=== PATIENT | female | born 1950 | race Caucasian/White ===

== ENCOUNTER 2017-10-17 21:22 | Inpatient (IN) | payer MEDICARE ==
--- NOTE | 2017-10-17 23:14 | CT ---
CT OF BRAIN PERFORMED WITHOUT CONTRAST ENHANCEMENT: 10/17/17 COMPARISON: Earlier examination the same day. HISTORY: Subacute stroke. Altered mental status. Ventricular and cisternal system shows fairly age appropriate change. Subtle hypodensity is again not ed in the subcortical white matter left frontal lobe. No hemorrhage or mass effect. IMPRESSION: Subtle area of decreased attenuation in the subcortical white matter of the left frontal lobe stable as compared to the earlier exam of the same day. No hemorrhage. If stroke is suspected, MRI would be helpful in further assessment. POS: [facility]
--- NOTE | 2017-10-17 23:15 | RAD ---
PORTABLE CHEST: 10/17/17 HISTORY: Altered mental status. Heart size is enlarged. Elevated right hemidiaphragm is present. The lungs are clear of any infiltrat gema process. No signs of overt failure. IMPRESSION: 1. Marked cardiomegaly. 2. Elevated right hemidiaphragm. POS: [facility]
[2017-10-17] MEDS ORDERED: Vecuronium 10 MG VIAL ONE (23:21)
[2017-10-17] MEDS ORDERED: Water For Inject, Bacteriostat 30 ML ONE (23:23)
[2017-10-17 23:40] LABS: INR-International Normal Ratio 1.7; PTT 29.8 SEC (22.9-36.1)
[2017-10-17 23:47] LABS: #Lymphocytes 0.4 thou/uL (1.20-3.40); #Monocytes 0.6 thou/uL (0.11-0.59); #Neutrophils 12.5 thou/uL (1.40-6.50); %Eosinophils 0.2 % (0.0-10.0); %Lymphocytes 3.2 % (21.0-51.0); %Monocytes 4.3 % (0.0-10.0); %Neutrophils 92.2 % (42.0-75.0); Hemoglobin 14.6 g/dL (12.0-16.0); Mean Corpuscular HGB CONC 29.5 g/dL (32.0-36.0); Mean Corpuscular Hemoglobin 32.9 pg (27.0-31.0); Platelet Count 178 thou/uL (130-400); RBC Distribution Width 13.3 % (11.5-14.5); Red Blood Cell (RBC) Count 4.44 mill/uL (4.20-5.40); White Blood Cell (WBC) Count 13.5 thou/uL (4.8-10.8)
[2017-10-17 23:52] LABS: ALT (SGPT) 20 U/L (8-55); AST (SGOT) 28 U/L (5-34); Albumin 3.4 g/dL (3.4-4.8); Alkaline Phosphatase 85 U/L (40-150); Anion Gap 19 mmol/L (10-20); BUN (Urea Nitrogen) 53 mg/dL (9.8-20.1); CK (CPK) 65 U/L (29-168); Calc. Creatinine Clearance 0 mL/min (70-130); Calcium 7.7 mg/dL (7.8-10.44); Carbon Dioxide 32 mmol/L (23-31); Chloride 97 mmol/L (98-107); Estimated GFR-MDRD 14; Globulin 2.7 g/dL (2.4-3.5); Glucose 123 mg/dL (80-115); Lipase 23 U/L (8-78); Potassium 5.7 mmol/L (3.5-5.1); Protein, Total 6.1 g/dL (6.0-8.3); Sodium 142 mmol/L (136-145)
[2017-10-17 23:54] LABS: CKMB 2.2 ng/mL (0-6.6); Troponin I 0.089 ng/mL (< 0.028)
[2017-10-18 00:05] LABS: pH, Arterial 7.11 (7.35-7.45)
[2017-10-18 00:10] LABS: CO2 Tension 129.9 mmHg (35.0-45.0)
[2017-10-18 00:11] LABS: Actual Bicarbonate (HCO3a) 40.5 mEq/L (22-26); Base Excess (BEa) 5.7 mEq/L (0 (+/-) 2.5); Hematocrit-ABG 51.9 % (36.0-47.0)
[2017-10-18 00:12] LABS: ALV-art Gradient 394.625 (0-20); Analyzer IN Cardio ER; Puncture Site RRA
[2017-10-18 00:22] LABS: MDiff Complete? YES; Macrocytosis SLIGHT = 6-15 cells (100X) (0-5/hpf); PLT Morphology Comment Appears Adequate; Polychromasia SLIGHT = 2-3 cells (100X) (0-2/hpf)
[2017-10-18] MEDS ORDERED: Norepinephrine 8 MG in Sodium Chloride 0.9% 250 ML 250 ML IVPB PRN (00:22)
[2017-10-18] MEDS ORDERED: Aspirin 300 MG Suppository ONE (00:36)
[2017-10-18] MEDS ORDERED: Propofol 1,000 MG/100 ML VIAL IV ONE (00:55)
[2017-10-18 01:01] LABS: O2 Tension (PaO2) 245.8 mmHg (80.0-100.0)
[2017-10-18 01:03] LABS: Actual Bicarbonate (HCO3a) 32.2 mEq/L (22-26); Base Excess (BEa) 5.9 mEq/L (0 (+/-) 2.5); Hematocrit-ABG 47.4 % (36.0-47.0); Hemoglobin (Hb) 14.3 g/dL (12.0-16.0)
[2017-10-18 01:05] LABS: Analyzer IN Cardio ER; Puncture Site RRA
[2017-10-18] MEDS ORDERED: Lorazepam 2 MG/ML VIAL ONE (01:18)
[2017-10-18] MEDS ORDERED: fentaNYL Citrate/PF 2,000 MCG in Sodium Chloride 0.9% 60 ML IV SCH ×2 (02:51→04:36)
[2017-10-18] MEDS ORDERED: Morphine 2 MG/ML SYRINGE SLOW IVP PRN ×2 (02:51→04:36)
[2017-10-18] MEDS ORDERED: DISCONTINUE PREVIOUS NARCOTIC PAIN MEDICATIONS AND BENZODIAZEPINES FS SCH ×2 (02:51→04:36)
[2017-10-18] MEDS ORDERED: Lorazepam 2 MG/ML VIAL SLOW IVP PRN ×2 (02:51→04:36)
[2017-10-18] MEDS ORDERED: Ondansetron ODT 4 MG TAB SL PRN (02:55)
[2017-10-18] MEDS ORDERED: Sodium Chloride 0.9% 1,000 ML IV SCH ×3 (02:55→17:15)
[2017-10-18] MEDS ORDERED: Ondansetron HCl/PF 4 MG/2 ML Vial IVP PRN ×2 (02:55→04:23)
[2017-10-18] MEDS ORDERED: CCU Electrolyte Replacement 1 EACH FS ONE (04:23)
[2017-10-18] MEDS ORDERED: Dextrose 5% in Water 1,000 ML IV PRN (04:23)
[2017-10-18] MEDS ORDERED: Ondansetron ODT 4 MG TAB PO PRN (04:23)
[2017-10-18] MEDS ORDERED: HumaLOG 300 UNITS/3 ML VIAL SC PRN ×2 (04:23)
[2017-10-18] MEDS ORDERED: Acetaminophen 650 MG Suppository PR PRN (04:23)
[2017-10-18] MEDS ORDERED: Sedation Protocol FS ONE (04:23)
[2017-10-18] MEDS ORDERED: Dextrose 50% Abboject 50 ML SYRINGE SLOW IVP PRN (04:23)
[2017-10-18 04:27] LABS: Troponin I 0.227 ng/mL (< 0.028)
[2017-10-18] MEDS ORDERED: Propofol 1,000 MG/100 ML VIAL IV PRN (04:36)
[2017-10-18] MEDS ORDERED: Potassium Phosphate 15 MMOL in Sodium Chloride 0.9% 250 ML 250 ML IV PRN (04:37)
[2017-10-18] MEDS ORDERED: Potassium Phosphate 12 MMOL in Sodium Chloride 0.9% 250 ML 250 ML IV PRN (04:37)
[2017-10-18] MEDS ORDERED: Magnesium 2 GM/NS 0.9% 100 ML 2 GM in Premix Bag 1 BAG IVPB PRN (04:37)
[2017-10-18] MEDS ORDERED: CCU ELECTROLYTE REPLACEMENT PROTOCOL FS PRN (04:37)
[2017-10-18] MEDS ORDERED: Potassium Chloride 40 MEQ in Sodium Chloride 0.9% 250 ML 250 ML IVPB PRN (04:37)
[2017-10-18] MEDS ORDERED: Potassium Chloride 40 MEQ in Premix Bag 1 BAG IVPB PRN (04:37)
[2017-10-18] MEDS ORDERED: Magnesium Oxide 400 MG TAB PO PRN ×2 (04:37)
[2017-10-18] MEDS ORDERED: Potassium Phosphate 9 MMOL in Sodium Chloride 0.9% 100 ML IVPB PRN (04:37)
[2017-10-18] MEDS ORDERED: Potassium Chloride 20 MEQ TAB PO PRN (04:37)
[2017-10-18] MEDS: Sodium Chloride 0.9% 1,000 ML IV SCH ×2 (05:24→19:15)
--- NOTE | 2017-10-18 05:58 | HP ---
DATE OF ADMISSION: 10/18/2017 PRIMARY CARE PROVIDER: Luis richter. CHIEF COMPLAINT: Unresponsive. HISTORY OF PRESENT ILLNESS: This is a 67-year-old female who presented from [facility] to [facility] Emergency Department after apparently being found unresponsive by family abi baumann. The history is obtained after review of electronic medical records and discussion with the E R attending as the patient is currently on mechanical ventilation, unable to provide any history. Th e patient was apparently last seen normal at approximately 2000 on 10/17/2017 by her son. The ino khan's son found her at home with altered mentation and confusion approximately 10:00 a.m. on 10/18/2017 . EMS was notified and the patient was taken to [facility] undergoing CT imaging o f the brain with questionable subacute ischemic CVA, not a candidate for TPA. The patient on chronic Eliquis for atrial fibrillation. The patient was evaluated initially for potential TPA; however, wa s not deemed an appropriate candidate due to the chronic Eliquis therapy. Due to patient's minimally responsive condition, patient was deemed unsafe for airway protection undergoing intubation in the e mergency room. The patient apparently had discussed she was not interested in aggressive support or life support with mechanical ventilation; however, the patient's agreed to intubate the dago nt for respiratory support and a potential chance of recovery. The patient was hypotensive in the em ergency room and receiving intravenous fluids as well as initiated on Levophed drip. Initial ABG obt ained showed severe elevation to pCO2 in the 130 range. The patient was placed on mechanical ventila tion with resulting hypotension after initiation of propofol. The patient's overall blood pressure s tabilizes after initial intubation. The patient underwent chest imaging showing questionable infiltr ate. At which point, the patient received empiric IV antibiotic therapy with vancomycin. The ion khan also received aspirin 324 mg rectally as well as intravenous normal saline x2 liters. Repeat CT im aging of the brain in the emergency room showed no acute intracranial process. The patient underwent general stroke protocol with NIH scoring ranging between 14 to 15 over approximately 6 hours. The p atient was referred to the Hospitalist Service for evaluation and admission. PAST MEDICAL HISTORY: 1. Chronic anticoagulation with Eliquis. 2. Morbid obesity. 3. Anxiety/depression. 4. Gastroesophageal reflux. 5. Question of tachyarrhythmia with atrial fibrillation on chronic anticoagulation with Eliquis. 6. Diabetes mellitus type 2. 7. Hypertension. 8. Question of congestive heart failure. 9. Esophagitis. 10. Spinal stenosis. 11. History of peripheral vascular disease. 12. History of deep venous thrombosis. PAST SURGICAL HISTORY: Status post right shoulder replacement. Right breast cancer, status post mas tectomy. CURRENT MEDICATIONS: Reviewed and negative. ALLERGIES: IODINE. FAMILY HISTORY: Unobtainable as patient is on mechanical ventilation. SOCIAL HISTORY: The patient resides in the [facility]. Retired. . No current alc ohol, tobacco or illicit drug use. Formerly smoked cigarettes. REVIEW OF SYSTEMS: Unobtainable as patient is on current mechanical ventilation. PHYSICAL EXAMINATION: VITAL SIGNS: On admission, blood pressure 100/80, pulse 69, respiratory rate 24, temperature 97.9 de grees Fahrenheit, O2 saturation 98% on nonrebreather. GENERAL APPEARANCE: This is a 67-year-old female currently on mechanical ventilation, mini storm responsive to stimuli. HEENT: Pupils are minimally reactive to light and accommodation. Extraocular muscles intact. Nares patent. OP is clear. ET tube in place. NECK: Supple, no cervical adenopathy, no thyromegaly, no carotid bruits, no JVD appreciated. Cervic al spine with full active and passive range of motion. CHEST: Diminished breath sounds in the bases bilaterally. CARDIOVASCULAR: S1, S2, without noted murmur. ABDOMEN: Obese, landmarks were difficult to palpate due to patient's body habitus. No palpable mass . No rebound or guarding. EXTREMITIES: Warm and dry with fair turgor. No clubbing, cyanosis or asymmetric edema. Nonpitting edema noted bilaterally. Pulses are diminished bilaterally at the dorsalis pedis, posterior tibial, and popliteal arteries. Capillary refill less than 2 seconds. NEUROLOGIC: Obtunded, withdraws to painful stimulus of the feet. GENITOURINARY: Bentley catheter in place with gentry urine. PERTINENT LABORATORY DATA AND X-RAY FINDINGS: Sodium 142, potassium 5.7, chloride 97, CO2 of 32, BUN 83, creatinine 3.31 with estimated GFR of 14, glucose 123, calcium 7.7. LFTs within normal limits. Troponin I ranged between 0.089 to 0.227. BNP 1823. Albumin 3.4, lipase 23. CBC showed white bloo d cell count 13.5, hemoglobin 15, hematocrit 49, MCV 111, platelet count 178 with 92% neutrophils. P T 20.0, INR 1.7, PTT 29.8. CT of the chest dated 10/17/2017 showed old granulomatous changes. Mild infiltrative versus atelectasis of the right lung base. Portable chest x-ray dated 10/18/2017 showed right-sided pleural effusion. Chronic changes in bilateral lung dickinson. Diminished lung volumes. The CT of the brain dated 10/18/2017 showed no acute intracranial process or hemorrhage. EKG dated 0 10/17/2017 by my interpretation shows sinus mechanism with heart rates in the 60s. Attenuated R waves noted in the precordial leads. Low voltage tracing. T-wave inversion noted in lead III and V3. ASSESSMENT AND PLAN: 1. Acute hypoxemic respiratory failure. We will continue mechanical ventilation with SIMV. We will consult Pulmonology Service for ventilatory management. We will continue aggressive pulmonary suppo rtive measures including daily portable chest x-ray. Suspect multifactorial respiratory failure give n patient's body habitus and questionable infiltrate/pneumonia of the right lower lobe. 2. Questionable subacute transient ischemic attack/cerebrovascular accident. Serial CT imaging of t he brain revealing no acute infarct. Likely old changes noted on CT initially. 3. Hypotension. Improved with intravenous normal saline x2 liters in addition to general supportive measures. Continue empiric antibiotic therapy with cefepime and Levaquin. Continue to titrate anti biotic regimen based on clinical response. 4. Question of congestive heart failure. BNP elevated to 1823. Check 2D transthoracic echocardiogr am for ejection fraction and wall motion detection. Hold Lasix due to hypotension and likely dehydra tion. 5. Chronic anticoagulation with Eliquis. We will need to confirm the purpose of anticoagulation. T he patient may be deemed an inappropriate candidate for outpatient Eliquis. 6. Acute encephalopathy, likely metabolic. Suspect patient's presentation due to polypharmacy and i atrogenic effects of multiple psychiatric medications. We will continue general supportive measures. Consider [facility] evaluation. 7. Acute kidney injury. We will continue low volume intravenous normal saline at 75 mL per hour. A void nephrotoxic agents and contrast media. Repeat creatinine in the a.m. 8. Hyperkalemia. Secondarily to acute kidney injury. Continue intravenous fluids as outlined previ ously. Avoid potassium supplementation. Repeat potassium level in the a.m. 9. Question of urinary tract infection. We will continue cefepime as stated previously. Await jaya bartlett urine culture results. 10. Prophylaxis. Sequential compression devices while in bed. Protonix 40 mg IV q.12 hours. 11. Code status is FULL. Surrogate medical decision maker is patient's spouse.
[2017-10-18 07:05] LABS: Troponin I 0.332 ng/mL (< 0.028)
--- NOTE | 2017-10-18 07:46 | RAD ---
SUPINE FRONTAL CHEST RADIOGRAPH: Date: 10-18-17 Comparison: 10-17-17 History: Intubated CCU patient. FINDINGS: Right vascular catheter overlies the region of the SVC. Endotracheal tube and nasogastric tube are in proper position. Left lung appears clear. There is marked elevation of the right hemidiaphragm limit ing evaluation of the right perihilar region, right middle lobe, and right lower lobe, grossly unchan ged. IMPRESSION: Stable appearance of the chest. POS: [facility]
--- NOTE | 2017-10-18 07:54 | CT ---
PRELIMINARY REPORT/[facility]/EMERGENCY AFTER HOURS PROCEDURE: EXAM: CT Head Without Intravenous Contrast CLINICAL HISTORY: 67 years old, female; Signs and symptoms; Altered mental status/memory loss; Other: Ams/sizure; Patie nt HX: Ams/sizure like activity TECHNIQUE: Axial computed tomography images of the head/brain without intravenous contrast. COMPARISON: No relevant prior studies available. FINDINGS: Brain: Mild volume loss No hemorrhage. Mild white matter disease. No edema. Ventricles: Unremarkable. No ventriculomegaly. Bones/joints: Unremarkable. No acute fracture. Soft tissues: Unremarkable. Sinuses: Unremarkable as visualized. No acute sinusitis. Mastoid air cells: Unremarkable as visualized. No mastoid effusion. IMPRESSION: No intracranial hemorrhage.Please see discussion above. Thank you for allowing us to participate in the care of your patient. Dictated and Authenticated by: Ryan Vallecillo MD 10/18/2017 2:32 AM Central Time (US & Day) FINAL REPORT CT BRAIN WITHOUT CONTRAST: I agree with the preliminary report given by Dr. Ryan Vallecillo of [facility]. POS: [facility]
--- NOTE | 2017-10-18 08:17 | RAD ---
PORTABLE CHEST ONE VIEW: Date: 10-18-17 Time: 5:46 a.m. History: Respiratory failure. FINDINGS/IMPRESSION: No significant internal change is seen since exam at 12:43 a.m. on the same day. POS: [facility]
[2017-10-18] MEDS ORDERED: Famotidine/PF 20 mg/2ml Vial SLOW IVP SCH (09:00)
[2017-10-18] MEDS ORDERED: Aspirin 300 MG Suppository PR SCH (09:00)
[2017-10-18] MEDS ORDERED: Cefepime 2 GM in Sodium Chloride 0.9% 100 ML IVPB SCH (09:00)
[2017-10-18] MEDS: Propofol 1,000 MG/100 ML VIAL IV PRN ×3 (09:20→23:35)
[2017-10-18] MEDS: Cefepime 2 GM, Syringe 2.5 ML in Sterile Water 10 ML SLOW IVP SCH (09:22)
[2017-10-18 09:49] LABS: CO2 Tension 40.3 mmHg (35.0-45.0); pH, Arterial 7.51 (7.35-7.45)
[2017-10-18 09:50] LABS: Actual Bicarbonate (HCO3a) 31.1 mEq/L (22-26); Base Excess (BEa) 7.5 mEq/L (0 (+/-) 2.5); Hematocrit-ABG 41.6 % (36.0-47.0); Hemoglobin (Hb) 13.4 g/dL (12.0-16.0); O2 Tension (PaO2) 81.8 mmHg (80.0-100.0)
[2017-10-18 09:51] LABS: Calcium, Ionized 0.9 mmol/L (1.12-1.30)
[2017-10-18 09:52] LABS: Puncture Site L.R.
[2017-10-18 09:53] LABS: ALV-art Gradient 226.825 (0-20)
--- NOTE | 2017-10-18 11:18 | ULT ---
CAROTID ARTERIAL DOPPLER ULTRASOUND: Date: 10-18-17 Comparison: None. History: Question transient ischemic attack, respiratory failure, possible CHF, altered mental status with memory loss. Technique: Multiplanar grayscale sonographic imaging of the arterial structures of the neck obtained with color flow and spectral analysis. FINDINGS: Antegrade blood flow and normal arterial waveforms are documented within the carotid system. The left vertebral artery is patent and demonstrates antegrade blood flow. The finishing inspector was not able to visualize the right vertebral artery. She reports that this was secon kristie to a vascular catheter present within the patient's neck on the right. VESSEL PSV (cm/sec) EDV (cm/sec) Right CCA 50 10 Right ICA 38 15 Right ECA 51 12 Left CCA 65 10 Left ICA 30 8 Left ECA 141 10 ICA/CCA ratio is 0.8 on the right and 0.5 on the left. IMPRESSION: 1. No hemodynamically significant stenosis is seen within the carotid system on either side on the ba sis of sonographic criteria. 2. Right vertebral artery could not be visualized. Sap Bi Developer reports that this secondary to a vascu lar line obscuring assessment. Thus, vertebral artery patency cannot be confirmed. If clinically aries anted, CT angiogram of the neck is thus advised. POS: [facility]
--- NOTE | 2017-10-18 14:19 | CON ---
DATE OF CONSULTATION: 10/18/2017 CONSULTING PHYSICIAN: Dr. Surinder Guillen REQUESTING PHYSICIAN: Dr. Garcia REASON FOR CONSULTATION: Acute on chronic kidney disease as well as hyperkalemia in an unresponsive patient. IMPRESSION: 1. Acute on chronic kidney disease. This is likely/possibly hemodynamically mediated acute tubular injury in the way of hypotension. 2. Hyperkalemia related to problem #1. PLAN: 1. We will continue gentle hydration and monitor the kidney function closely, especially the electro lytes, in this case hyperkalemia. 2. There is no emergent indication for dialytic intervention at this point; however, if this renal f unction does not improve and the hyperkalemia persists, this modality of treatment might become indic ated. HISTORY OF PRESENT ILLNESS: History is that of a 67-year-old female patient who is currently intuba debbie, brought in unresponsive from [place] where the patient presented with mental status change and was intubated, felt not to be able to maintain the airway. Clinical evaluation suspicion of a manuel bacute CVA. The patient on further evaluation was noted with poor renal function with a creatinine o f 3.31, BUN of 53 and a potassium of 5.7. As a result of these findings, the decision has been taken to involve Renal in the management of this case. PAST MEDICAL HISTORY: Coagulopathy, on Eliquis, atrial fibrillation, morbid obesity, anxiety, depres joe, reflux disease, type 2 diabetes mellitus, hypertension, esophagitis, possible congestive heart failure, peripheral vascular disease and history of deep venous thrombosis. MEDICATIONS: Reviewed and as documented on [employer]. ALLERGIES: IODINE. FAMILY HISTORY: Could not be obtained as well as the social history because the patient is currently intubated. REVIEW OF SYSTEMS: Unobtainable. PHYSICAL EXAMINATION: GENERAL: The patient noted to be on life support, but hemodynamically stable. VITAL SIGNS: Blood pressure 104/48, pulse 79, respiratory rate of 16, O2 sat 95%. HEENT: Remarkable for endotracheal tube in place. CARDIOVASCULAR SYSTEM: First and second heart sounds were heard. RESPIRATORY SYSTEM: Reveals vented sounds. DIGESTIVE SYSTEM: Revealed an obese abdomen. EXTREMITIES: Showed bilateral leg edema. NEUROLOGIC: Revealed a patient who is sedated and intubated. SUMMARY: A 67-year-old female patient brought in unresponsive, having suffered what is believed to b e subacute cerebrovascular accident, now noted with electrolyte derangement in this case hyperkalemia in the context of advanced chronic kidney disease versus [id number] kidney disease. Thank you for this consultation. We will follow with you.
[2017-10-18] MEDS ORDERED: Albumin 25% 25 GM/100 ML BOT IVPB SCH (14:20)
[2017-10-18] MEDS ORDERED: Propofol 200 MG/20 ML VIAL ONE (15:00)
[2017-10-18 15:02] LABS: Anion Gap 15 mmol/L (10-20); BUN (Urea Nitrogen) 67 mg/dL (9.8-20.1); Calc. Creatinine Clearance 44 mL/min (70-130); Calcium 7.2 mg/dL (7.8-10.44); Carbon Dioxide 33 mmol/L (23-31); Chloride 100 mmol/L (98-107); Estimated GFR-MDRD 15; Glucose 79 mg/dL (80-115); Potassium 4.3 mmol/L (3.5-5.1); Sodium 144 mmol/L (136-145)
[2017-10-18 17:28] LABS: Platelet Count 123 thou/uL (130-400)
[2017-10-18 17:29] LABS: #Basophils 0.1 thou/uL (0.0-0.2); #Lymphocytes 0.9 thou/uL (1.20-3.40); #Monocytes 0.7 thou/uL (0.11-0.59); %Basophils 0.6 % (0.0-1.0); %Eosinophils 0.4 % (0.0-10.0); %Lymphocytes 9.5 % (21.0-51.0); %Monocytes 6.7 % (0.0-10.0); %Neutrophils 82.8 % (42.0-75.0); Hemoglobin 12.4 g/dL (12.0-16.0); Mean Corpuscular HGB CONC 31.4 g/dL (32.0-36.0); Mean Corpuscular Hemoglobin 33.1 pg (27.0-31.0); Platelet Count 123 thou/uL (130-400); RBC Distribution Width 13.4 % (11.5-14.5); Red Blood Cell (RBC) Count 3.74 mill/uL (4.20-5.40); White Blood Cell (WBC) Count 9.7 thou/uL (4.8-10.8)
[2017-10-18 17:34] LABS: Fibrinogen 367 mg/dL (253-463); INR-International Normal Ratio 1.9; PTT 31.7 SEC (22.9-36.1); Prothrombin Time 22.6 SEC (12.0-14.7)
[2017-10-18 17:35] LABS: D-Dimer Test 1.04 *mcg/mL (0.27-0.43)
[2017-10-18 17:39] LABS: Actual Bicarbonate (HCO3a) 31.1 mEq/L (22-26); CO2 Tension 53.1 mmHg (35.0-45.0); Hematocrit-ABG 37.6 % (36.0-47.0); O2 Tension (PaO2) 66.3 mmHg (80.0-100.0); pH, Arterial 7.39 (7.35-7.45)
[2017-10-18 17:40] LABS: ALV-art Gradient 226.325 (0-20); Calcium, Ionized 0.9 mmol/L (1.12-1.30)
[2017-10-18 17:48] LABS: FSP-Qualitative ABNORMAL (Normal); FSP-Semiquantitative >=5 & <20 mcg/mL (Less than 5)
[2017-10-18 17:50] LABS: ALT (SGPT) 19 U/L (8-55); AST (SGOT) 26 U/L (5-34); Alkaline Phosphatase 59 U/L (40-150); Anion Gap 17 mmol/L (10-20); BUN (Urea Nitrogen) 65 mg/dL (9.8-20.1); Calc. Creatinine Clearance 44 mL/min (70-130); Calcium 7.2 mg/dL (7.8-10.44); Carbon Dioxide 29 mmol/L (23-31); Chloride 100 mmol/L (98-107); Estimated GFR-MDRD 15; Globulin 2.1 g/dL (2.4-3.5); Glucose 85 mg/dL (80-115); Potassium 4.4 mmol/L (3.5-5.1); Protein, Total 5.1 g/dL (6.0-8.3); Sodium 142 mmol/L (136-145)
--- NOTE | 2017-10-18 20:04 | CON ---
DATE OF CONSULTATION: 10/18/2017 HISTORY OF PRESENT ILLNESS: The patient is a 67-year-old white female who was in her normal state of health until the day of admission, when she had altered mental status. She was diagnosed with a cer ebrovascular accident. The patient was on Xarelto for atrial fibrillation. She was intubated becaus e of inability to protect her airway. In the critical care unit, she had a large dark bloody stool. She has not had any prior history of GI bleeds or ulcer disease. History of diverticulosis, but nev er bleeding from that. PAST MEDICAL HISTORY: 1. Chronic atrial fibrillation, on Xarelto. 2. Obesity. 3. Diabetes mellitus. 4. Gastroesophageal reflux disease. 5. Hypertension. 6. History of esophagitis. 7. Spinal stenosis. 8. Peripheral vascular disease. PAST SURGICAL HISTORY: Shoulder replacement, right breast cancer, and mastectomy. CURRENT MEDICATIONS: Cefepime 2 grams IV q.24 hours, famotidine 20 mg IV every day, levofloxacin 75 0 mg IV q.48 hours, Ativan 2 mg IV q.2 hours p.r.n., magnesium oxide 400 mg p.o. b.i.d. p.r.n., Levo phed drip, propofol drip, vancomycin 2 grams IV. SOCIAL HISTORY: She does not smoke or drink. FAMILY HISTORY: Negative. REVIEW OF SYSTEMS: Unobtainable. PHYSICAL EXAMINATION: GENERAL: Shows an obese female in no acute distress, intubated. HEENT: Shows a nasogastric tube and orotracheal tube. CHEST: Clear. CARDIOVASCULAR: Regular rate and rhythm. ABDOMEN: Obese, soft, nontender. RECTAL: Deferred. EXTREMITIES: Normal. NEUROLOGIC: Nonfocal. LABORATORY DATA: Shows a hemoglobin of 12.4, hematocrit of 39.4. PT is 22.6 with an INR of 1.9. Ch emistries showed a creatinine of 3.09, BUN 67, glucose 79. ASSESSMENT: 1. Upper gastrointestinal bleed. 2. Cerebrovascular accident. 3. Atrial fibrillation, on Xarelto. 4. Renal insufficiency - this will contribute to slower degradation of the patient's Xarelto. RECOMMENDATIONS: 1. Hold anticoagulation. 2. EGD. 3. Begin IV PPI. 4. Serial H&H.
--- NOTE | 2017-10-18 20:56 | OP ---
PREOPERATIVE DIAGNOSIS: Gastrointestinal bleed. PROCEDURE IN DETAIL: After informed consent was obtained, the patient was placed in the left lateral decubitus position. Anesthesia was administered per the Anesthesia Department. Forward-viewing end oscope was inserted into the esophagus under direct visualization with ease and passed to the second portion of the duodenum with ease. Second portion of the duodenum was normal. Duodenal bulb was nor mal. No blood was seen in the upper GI tract. In the mid stomach was what appeared to be an old gas tric banding site with luminal narrowing. There was an erosion at the waist of this gastric band. P roximal to the waist was an adherent clot. This clot could not be removed despite an aeration and manuel ction and seemed to be stable and not actively bleeding, so it was left alone. In the more proximal pouch of the stomach near the cardia was another ostomy which seems to go into stomach as well. No b lood was seen in this area as well. The esophagus was normal throughout. ASSESSMENT: 1. Adherent clot in the proximal gastric pouch -- no treatment was applied. 2. Previous gastric surgical procedures probably bariatric in nature. 3. Otherwise normal esophagogastroduodenoscopy. RECOMMENDATIONS: 1. Continuous infusion PPI. 2. May begin tube feedings. 3. Relook EGD in 48 hours.
[2017-10-18] MEDS ORDERED: FLU VACC TS2017-18 (>65YR) 0.5 ML SYRINGE IM ONE (21:00)
[2017-10-18] MEDS ORDERED: Prevnar 13-Val Conj/PF 0.5 ML SYRINGE IM ONE (21:00)
[2017-10-18] MEDS: Pantoprazole 80 MG in Sodium Chloride 0.9% 100 ML IVP SCH (21:43)
--- NOTE | 2017-10-19 02:24 | CON ---
DATE OF CONSULTATION: 10/18/2017 REFERRING PHYSICIAN: Dusty Garcia D.O. REASON FOR CONSULTATION: Questionable transient ischemic attack versus cerebrovascular accident. HISTORY OF PRESENT ILLNESS: Ms. Miller is a 67-year-old morbidly obese female who has been consulte d for evaluation of question of transient ischemic attack versus cerebrovascular accident. History i s obtained from patient's medical chart as patient is unable to provide and there are no family membe r present at bedside. Apparently, the patient was brought to [facility] on yesterday after she was found unresponsive by family members. The patient was apparently last seen normal by h er son on 10/17/2017 around 8:00 p.m. The patient's son found her at home with altered mentation and confusion approximately 10:00 in the morning today. The patient had called 911 and EMS had brought them to go to the [facility] where she had a CT head without contrast done, which s howed questionable subacute ischemic stroke that she was not a candidate for TPA and then transferred over here for further care. She is also on chronic Eliquis for atrial fibrillation. She was found to be hypotensive on arrival to the emergency room and required pressor support. She was also noted to have significantly elevated pCO2 on ABG. Per nurse, the patient was slowly recovering with her me ntation today, she was able to move all 4 extremities to command and able to nod her head yes and no. However, she had a bloody bowel movement after which she dropped her blood pressure and since then she has been more lethargic and nonresponsive. PAST MEDICAL HISTORY: Significant for hypertension, diabetes, atrial fibrillation on Eliquis, GERD, anxiety, depression, morbid obesity, esophagitis, spinal stenosis, peripheral vascular disease and hi story of DVT. PAST SURGICAL HISTORY: Significant for right shoulder replacement surgery and history of mastectomy for right-sided breast cancer. CURRENT MEDICATIONS: Please review MAR. ALLERGIES: Include IODINE. FAMILY HISTORY: Unable to obtain. SOCIAL HISTORY: Unable to obtain. REVIEW OF SYSTEMS: Unable to obtain. PHYSICAL EXAMINATION: VITAL SIGNS: Blood pressure of 158/89, temperature of 99.4, respirations of 15, O2 sats of 94% on me chanical ventilation. GENERAL: Intubated, morbidly obese female in no apparent distress. RESPIRATORY: Clear to auscultation bilaterally. CARDIOVASCULAR: Regular rate and rhythm. NEUROLOGIC: Mental status: The patient is intubated and unresponsive to verbal or noxious stimuli. Cranial nerves: Pupils are 3 mm and reactive. Visual dickinson are unable to perform. Face appears s ymmetric. She does breathe over the ventilator machine. Motor exam showed flaccid bilateral upper a nd lower extremity. She does move her lower extremities very slightly to command. No movement noted in the upper extremities. She does not withdraw to pain in both upper and lower extremities. LABORATORY DATA: Reviewed, which included CBC, CMP, troponin, BNP, which is significant for potassiu m of 5.7, BUN of 65, creatinine of 3.09, troponin of 0.332, otherwise unremarkable. IMAGING STUDIES: CT head without contrast was reviewed, which showed subtle hypodensity in the left anterior frontal lobe suggestive of possible acute to subacute ischemic infarct. IMPRESSION: 1. Possible subacute left middle cerebral artery distribution ischemic infarct. 2. Altered mental status, likely toxic metabolic encephalopathy. 3. Upper gastrointestinal bleed. Ms. Miller is a pleasant 67-year-old female who presented with changes after being found u nresponsive at home. She is slowly recovering this morning and then had an episode of bloody bowel m ovement and since then she has regressed. I have reviewed her CT head without contrast, which showed possible hypoattenuation in the left anterior frontal lobe suggestive of acute to subacute ischemic infarct. At this time, I will recommend obtaining MRI brain without contrast when medically stable. Continue current medical management. Continue supportive care. Thank you for your consultation.
[2017-10-19 06:15] LABS: ALT (SGPT) 19 U/L (8-55); AST (SGOT) 22 U/L (5-34); Albumin 3.3 g/dL (3.4-4.8); Alkaline Phosphatase 66 U/L (40-150); Anion Gap 14 mmol/L (10-20); BUN (Urea Nitrogen) 61 mg/dL (9.8-20.1); Bilirubin, Total 1.2 mg/dL (0.2-1.2); Calc. Creatinine Clearance 59 mL/min (70-130); Calcium 7.7 mg/dL (7.8-10.44); Carbon Dioxide 33 mmol/L (23-31); Chloride 101 mmol/L (98-107); Estimated GFR-MDRD 21; Globulin 2.3 g/dL (2.4-3.5); Glucose 90 mg/dL (80-115); Potassium 3.6 mmol/L (3.5-5.1); Protein, Total 5.6 g/dL (6.0-8.3); Sodium 144 mmol/L (136-145)
--- NOTE | 2017-10-19 06:22 | CON ---
DATE OF CONSULTATION: 10/18/2017 HISTORY OF PRESENT ILLNESS: Enid Miller's history is obtained from her and the son. Ms. Miller is a 67-year-old female. tells me that she said she never wanted to be intubated no matter what, but apparently the was called when she presented for care and was asked if he wa nted everything to be done. Since he was not here, he asked that she be intubated and now he is toña diamond thoughts. I reassured him that it was the right thing to do until we delineate what her pr oblems are. Apparently, she was found down on the toilet and subsequently was transferred to the [facility] and admitted after intubation. Her son says she was on the toilet no longer than 30 minutes al one. Subacute thrombotic CVA was found on noncontrast CT imaging. She is chronically anticoagulated with Eliquis for atrial fibrillation and took her Eliquis yesterday, but has had nothing since the o nset of her illness apparently. Patient's blood pressure was initially labile. Subsequently, the laury mccann has been at the ICU and I was consulted because of the respiratory failure. This afternoon, jesse keller started having rectal bleeding. She already has central line in place. She was given 2 liters of saline, typed and crossed and coags were ordered. Gastroenterology was consulted and is planing to do endoscopy this evening. PAST MEDICAL HISTORY: Remarkable for, 1. Obesity. 2. Deconditioning and inactivity. 3. History of reflux disease. 4. History of atrial fibrillation. 5. Diabetes. 6. Hypertension. 7. History of spinal stenosis. 8. Reported history of esophagitis. 9. History of peripheral vascular disease. 10. History of DVT in the past. 11. History of shoulder replacement. 12. History of mastectomy for breast cancer. SOCIAL HISTORY: She lives in the [facility]. She is a nonsmoker, nondrinker. She has been using drugs and used to smoke. FAMILY HISTORY: Negative for lung disease at an early age according to the . ALLERGIES: THERE IS REPORTED IODINE ALLERGY. REVIEW OF SYSTEMS: According to her and is otherwise negative. Before going down on the venancio let, she was doing reasonably well at her baseline, although she had complained of some abdominal scrap breaker mping yesterday per his history. PHYSICAL EXAMINATION: VITAL SIGNS: Evening blood pressure 150/89, earlier today blood pressure dropped into the 70s, heart rate is now in the 80s, respiratory rate is 15, oximetry is 95. HEENT: Pupils are equal. Sclerae is anicteric. NECK: Supple. Awakening and weakly following commands during the afternoon today. She was examined multiple times. LUNGS: Clear. HEART: Regular rhythm. ABDOMEN: Soft. EXTREMITIES: No guarding or rigidity. She is quite obese. There is no lower extremity asymmetry. Does have chronic stasis changes and very large lower extremities all the way down to her ankles. LABORATORY DATA: White count is 9.7, hemoglobin 12.4 at 5:00 o'clock, platelets 123. Sodium 142, po tassium 4.4, chloride 100, bicarbonate 29, BUN 65, creatinine 3.09, troponin 0.3, albumin is 3. IMAGING DATA: Chest radiograph was reviewed. She has elevated right hemidiaphragm and no films here . IMPRESSION: 1. Respiratory failure associated with cerebrovascular accident. 2. Gastrointestinal blood loss. Unclear whether her blood pressure was low on the toilet, but it wa s apparently well in the emergency department. She started bleeding, but had no clinical signs of bleeding prior to this afternoon. Dr. Orosco was co nsulted to perform endoscopy. He did perform upper endoscopy according to the notes. She had a clot in her proximal gastric pouch. It appears she has had previous bariatric surgery per Dr. Orosco's not es. It was revealed by the when I was talking about past medical history. PPIs were recommended. She will remain mechanically ventilated. and son did want her to be a do not resuscitate patient. At this point, we will be able to consider extubation depends on the n eurological progress. Neurology needs to be consulted, it does not appear that this has been done. Magnetic resonance imaging might be appropriate because all radiographs have been reviewed by me. Her last blood gas was pH 7.39, CO2 of 53, pO2 of 66, probably caused her baseline pCO2. Her mean bl ood gas showed pH of 7.11, CO2 of 129. She is not currently being treated for sleep apnea per my dis cussion with the . I will be happy to follow along with the other physicians caring for. Critical care time was 30 minutes.
[2017-10-19 06:25] LABS: Band 2 % (5-11); Lymphocytes 16 % (21-51); MDiff Complete? YES; Mean Corpuscular HGB CONC 32.4 g/dL (32.0-36.0); Mean Corpuscular Hemoglobin 33.5 pg (27.0-31.0); Monocytes 5 % (0-10); Neutrophil 77 % (42-75); Platelet Count 140 thou/uL (130-400); RBC Distribution Width 13.5 % (11.5-14.5); Red Blood Cell (RBC) Count 3.87 mill/uL (4.20-5.40); White Blood Cell (WBC) Count 10.6 thou/uL (4.8-10.8)
[2017-10-19] MEDS: Pantoprazole 80 MG in Sodium Chloride 0.9% 100 ML IVP SCH (06:35)
[2017-10-19 07:09] LABS: CO2 Tension 49.1 mmHg (35.0-45.0); O2 Tension (PaO2) 124.3 mmHg (80.0-100.0); pH, Arterial 7.41 (7.35-7.45)
[2017-10-19 07:10] LABS: ALV-art Gradient 168.325 (0-20); Actual Bicarbonate (HCO3a) 30.6 mEq/L (22-26); Hemoglobin (Hb) 12.9 g/dL (12.0-16.0); Puncture Site RR
[2017-10-19] MEDS: Sodium Chloride 0.9% 1,000 ML IV SCH ×2 (07:54→20:51)
[2017-10-19 08:19] LABS: INR-International Normal Ratio 1.7; PTT 31.6 SEC (22.9-36.1); Prothrombin Time 20.1 SEC (12.0-14.7)
[2017-10-19] MEDS: Cefepime 2 GM, Syringe 2.5 ML in Sterile Water 10 ML SLOW IVP SCH (08:29)
[2017-10-19] MEDS: Propofol 1,000 MG/100 ML VIAL IV PRN (08:29)
--- NOTE | 2017-10-19 11:07 | PDOC.PN ---
- Subjective Encounter Start Date: 10/19/17 Encounter Start Time: 09:25 -: old records requested/rev pt is extubated this morning, she is more alert, no fever, no further bleeding - Objective Resuscitation Status: Resuscitation Status DNR:Do Not Resuscitate MAR Reviewed: Yes Vital Signs & Weight: Vital Signs (12 hours) Temp Pulse Resp BP Pulse Ox 10/19/17 10:20 88 20 94 L 10/19/17 09:45 93 L 10/19/17 09:30 93 L 10/19/17 08:00 14 10/19/17 07:27 98.7 F 74 18 93 L 10/19/17 07:24 76 115/55 L 10/19/17 07:00 98.7 F 10/19/17 05:55 14 10/19/17 04:00 98.6 F 16 10/19/17 02:00 14 10/19/17 00:00 98.6 F 14 Weight Admit Weight 361 lb Weight 365 lb 11.95 oz Most Recent Monitor Data Heart Rate from ECG 84 NIBP 126/69 NIBP BP-Mean 83 Respiration from ECG 23 SpO2 99 I&O: 10/18/17 10/19/17 10/20/17 06:59 06:59 06:59 Intake Total 164.8 3171.4 32 Output Total 300 1765 570 Balance -135.2 1406.4 -538 Result Diagrams: 10/19/17 05:30 10/19/17 05:30 Additional Labs: Accuchecks 10/19/17 10/19/17 10/18/17 10:46 05:35 21:57 POC Glucose 85 82 78 10/18/17 10/18/17 10/18/17 17:17 12:31 11:15 POC Glucose 86 74 66 L Radiology Reviewed by me: Yes (chest xray) EKG Reviewed by me: Yes (nsr) Phys Exam - Physical Examination Constitutional: NAD HEENT: PERRLA, moist MMs, sclera anicteric Neck: no JVD, supple Respiratory: no wheezing, no rales, no rhonchi Cardiovascular: RRR, no significant murmur, no rub Gastrointestinal: soft, non-tender, no distention, positive bowel sounds morbid obesity limiting exam Musculoskeletal: no edema, pulses present dificult to perform neuro exam Lymphatic: no nodes Psychiatric: normal affect Skin: no rash, normal turgor Dx/Plan (1) Acute metabolic encephalopathy Code(s): G93.41 - METABOLIC ENCEPHALOPATHY Status: Resolved (2) Acute on chronic diastolic (congestive) heart failure Code(s): I50.33 - ACUTE ON CHRONIC DIASTOLIC (CONGESTIVE) HEART FAILURE Status : Acute (3) Acute on chronic kidney failure Code(s): N17.9 - ACUTE KIDNEY FAILURE, UNSPECIFIED; N18.9 - CHRONIC KIDNEY DISEASE, UNSPECIFIED Status: Acute Comment: improving (4) Acute respiratory failure with hypoxia Code(s): J96.01 - ACUTE RESPIRATORY FAILURE WITH HYPOXIA Status: Acute Comment: extubated (5) Demand ischemia of myocardium Code(s): I24.8 - OTHER FORMS OF ACUTE ISCHEMIC HEART DISEASE Status: Acute (6) Anxiety and depression Code(s): F41.8 - OTHER SPECIFIED ANXIETY DISORDERS Status: Chronic (7) Chronic anticoagulation Code(s): Z79.01 - INTERMEDIATE (CURRENT) USE OF ANTICOAGULANTS Status: Chronic Comment: currently off due to GI bleed (8) Diabetes type 2, controlled Code(s): E11.9 - TYPE 2 DIABETES MELLITUS WITHOUT COMPLICATIONS Status: Chronic (9) GERD (gastroesophageal reflux disease) Code(s): K21.9 - GASTRO-ESOPHAGEAL REFLUX DISEASE WITHOUT ESOPHAGITIS Status: Chronic (10) Morbid obesity with BMI of 50.0-59.9, adult Code(s): E66.01 - MORBID (SEVERE) OBESITY DUE TO EXCESS CALORIES; Z68.43 - BODY MASS INDEX (BMI) 50-59.9 , ADULT Status: Chronic (11) Paroxysmal atrial fibrillation Code(s): I48.0 - PAROXYSMAL ATRIAL FIBRILLATION Status: Chronic (12) Severe tricuspid regurgitation Code(s): I07.1 - RHEUMATIC TRICUSPID INSUFFICIENCY Status: Chronic (13) CVA (cerebral vascular accident) Code(s): I63.9 - CEREBRAL INFARCTION, UNSPECIFIED Status: Suspected (14) GI bleed Code(s): K92.2 - GASTROINTESTINAL HEMORRHAGE, UNSPECIFIED Status: Resolved (15) Hyperkalemia Code(s): E87.5 - HYPERKALEMIA Status: Resolved (16) Hypotension Status: Resolved - Plan cont current plan of care, PT/OT * neuro recommended MRI * extubated today * overall stable hemodynemically * medication reviewed as below * symptomatic treatment * will monitor in CCU today * start PT/OT as tolerated. Review of Systems - Review of Systems Other: not reliable today after extubation, due to current cognitive status - Medications/Allergies Allergies/Adverse Reactions: Allergies Allergy/AdvReac Type Severity Reaction Status Date / Time iodine Allergy Verified 10/17/17 23:12 Medications: Current Medications Acetaminophen (Tylenol) 650 mg MT Q4H PRN PRN Reason: Headache/Fever or Mild Pain Acetaminophen (Tylenol) 1,000 mg PO Q6H PRN PRN Reason: Headache/Fever or Mild Pain Albuterol/Ipratropium (Duoneb) 3 ml NEB [id number] MICHEAL Last Admin: 10/19/17 10:20 Dose: 3 ml Dextrose/Water (Dextrose 50%) 25 gm SLOW IVP PRN PRN PRN Reason: Hypoglycemia Glucagon (Glucagon) 1 mg IM PRN PRN PRN Reason: Hypoglycemia Norepinephrine Bitartrate 8 mg (/ Sodium Chloride) 258 mls @ 0 mls/hr IVPB INF PRN; Protocol; Titrate PRN Reason: SBP Last Admin: 10/19/17 02:07 Dose: 258 mls Dextrose/Water (D5w) 1,000 mls @ 0 mls/hr IV .Q0M PRN; As Directed PRN Reason: Hypoglycemia Levofloxacin 500 mg/ Device 100 mls @ 100 mls/hr IVPB Q48H MICHEAL Sodium Chloride (Normal Saline 0.9%) 1,000 mls @ 75 mls/hr IV .[id number] MICHEAL Last Admin: 10/19/17 07:54 Dose: 1,000 mls Fentanyl Citrate 2,000 mcg/ (Sodium Chloride) 100 mls @ 0 mls/hr IV INF MICHEAL; Per Protocol PRN Reason: Protocol Stop: 11/17/17 04:36 Fentanyl Citrate (Fentanyl Bolus) 250 mls @ 0 mls/hr IVPB PRN PRN; As Directed PRN Reason: Breakthrough pain Stop: 11/17/17 04:36 Potassium Chloride 40 meq/ (Sodium Chloride) 270 mls @ 135 mls/hr IVPB ASDIR PRN PRN Reason: FOR SERUM K+ 2.5 - 3.5 Potassium Chloride 40 meq/ (Device) 100 mls @ 50 mls/hr IVPB ASDIR PRN PRN Reason: FOR SERUM K+ 2.5 - 3.5 Magnesium Sulfate 1 gm/ Sodium (Chloride) 102 mls @ 102 mls/hr IV PRN PRN PRN Reason: MAG LEVEL 1.4 - 2.0 Magnesium Sulfate 2 gm/ Device 100 mls @ 100 mls/hr IVPB ASDIR PRN PRN Reason: MAGNESIUM < 1.4 Potassium Phosphate 9 mmol/ (Sodium Chloride) 103 mls @ 25.75 mls/hr IVPB ASDIR PRN PRN Reason: Phosphate 1.0-1.8 Potassium Phosphate 12 mmol/ (Sodium Chloride) 254 mls @ 63.5 mls/hr IV ASDIR PRN PRN Reason: Serum phosphate 0.5-0.9 Potassium Phosphate 15 mmol/ (Sodium Chloride) 255 mls @ 63.75 mls/hr IV ASDIR PRN PRN Reason: Serum Phos < 0.5 Cefepime HCl 2 gm/ Syringe 2.5 (ml/ Sterile Water) 12.5 mls @ 150 mls/hr SLOW IVP 0900 [facility] Last Admin: 10/19/17 08:29 Dose: 12.5 mls Pantoprazole Sodium 80 mg/ (Sodium Chloride) 100 mls @ 10 mls/hr IVP INF [facility] Last Admin: 10/19/17 06:35 Dose: 100 mls Insulin Human Lispro (Humalog) 0 units SC .MODERATE SLIDING SC PRN PRN Reason: Moderate Correctional Scale Insulin Human Lispro (Humalog) 0 units SC .BEDTIME SLIDING SC PRN PRN Reason: Bedtime Correctional Scale Lorazepam (Ativan) 2 mg SLOW IVP Q2H PRN PRN Reason: Anxiety to achieve Aguilar 2-3 Stop: 11/17/17 04:36 Last Admin: 10/18/17 15:43 Dose: 2 mg Magnesium Oxide (Magnesium Oxide) 400 mg PO BIDPRN PRN PRN Reason: FOR SERUM MAG 1.4 - 2.0 Magnesium Oxide (Magnesium Oxide) 800 mg PO PRN PRN PRN Reason: FOR SERUM MAG < 1.4 Miscellaneous Medication (Phos-Nak) 1 pkt PO TIDPRN PRN PRN Reason: FOR PHOS LEVEL 1.0 - 1.8 Miscellaneous Medication (Phos-Nak) 2 pkt PO TIDPRN PRN PRN Reason: FOR PHOS LEVEL 0.5 - 1.0 Morphine Sulfate (Morphine) 2 mg SLOW IVP Q2H PRN PRN Reason: Breakthrough pain Stop: 11/17/17 04:36 Discontinue Previous Narcotic Pain Medications And Benzodiazepines 1 each FS .ONE MICHEAL Stop: 11/17/17 04:36 Ccu Electrolyte (Replacement Protocol) 0 each FS PRN PRN PRN Reason: FOR ELECTROLYTE REPLACEMENT Ondansetron HCl (Zofran Odt) 4 mg PO Q6H PRN PRN Reason: Nausea/Vomiting Ondansetron HCl (Zofran) 4 mg IVP Q6H PRN PRN Reason: Nausea/Vomiting Potassium Chloride (K-Dur) 40 meq PO ASDIR PRN PRN Reason: FOR SERUM K+ 2.5 - 3.5 Potassium Chloride (Klor-Con) 40 meq PER TUBE ASDIR PRN PRN Reason: FOR SERUM K+ 2.5-3.5 Propofol (Diprivan) 1,000 mg IV INF PRN; Protocol PRN Reason: TO ACHIEVE AGUILAR SCORE 2-3 Stop: 11/17/17 02:51 Last Admin: 10/19/17 08:29 Dose: 1,000 mg Propofol (Diprivan) 1,000 mg IV INF PRN; Protocol PRN Reason: TO ACHIEVE AGUILAR SCORE 2-3 Stop: 11/17/17 04:36
[2017-10-19] MEDS ORDERED: Levofloxacin 750 mg/D5W 500 MG in Premix Bag 1 BAG IVPB SCH (15:00)
--- NOTE | 2017-10-19 17:26 | PRG ---
DATE OF SERVICE: 10/19/2017 SUBJECTIVE: The patient has had no further bleeding. She has got extubated this morning. She is wi thout GI complaints. OBJECTIVE: VITAL SIGNS: Pulse is 88, respiratory rate 20, blood pressure 114/62, temperature 98.7. CHEST: Clear. CARDIOVASCULAR: Regular rate and rhythm. ABDOMEN: Soft, nontender, without organomegaly or masses. LABORATORY DATA: Shows hemoglobin 13.0, hematocrit of 40.4. PT this morning is 20.1 with an INR of 1.7. ASSESSMENT: 1. Gastrointestinal bleed - the patient had an adherent clot in the proximal gastric pouch, seems to have not re-bled. 2. Respiratory failure - resolved. 3. Cerebrovascular accident. 4. Atrial fibrillation on Xarelto. RECOMMENDATIONS: 1. Continue to hold Xarelto. 2. Relook EGD in 48 hours. 3. Continue IV PPI.
--- NOTE | 2017-10-19 19:36 | PRG ---
DATE OF SERVICE: 10/19/2017 SUBJECTIVE: Angela did well overnight. She was awake. She was smiling. She was moving all her extremities this morning. OBJECTIVE: VITAL SIGNS: This afternoon, blood pressure 120/67, heart rate is in the 70s, respiratory rate in the teens. LUNGS: Clear this morning. HEART: Regular rhythm. ABDOMEN: Soft. GI workup yesterday was negative. She did have clot in her stomach, but this will have to be reevaluated later time. LABORATORY DATA: White count is 10, hemoglobin 13, platelets 140,000. Sodium 140, potassium 3.6, chloride 101, bicarb 33, BUN 61, creatinine 2.3. Coags were abnormal yesterday, that is still abnormal. I suspect this is a downstream effect of the Eliquis and renal insufficiency, unless she has some degree of fatty liver dysfunction. ASSESSMENT AND PLAN: In any event, she is much better. I felt she was a candidate for extubation. This has been done successfully. I would not doubt that she has significant sleep apnea, so I recommended that we sleep her on BiPAP. At some point in time, she will have another endoscopy. Renal function will continue to be monitored. Cultures have been reviewed. There are no positive cultures. There is no reason to continue on this extremely broad spectrum antimicrobials, so her cefepime will be discontinued and the Levaquin will be discontinued. Clearly full dose anticoagulation will have to be held. Critical care time 30 minutes. MTDD
--- NOTE | 2017-10-19 20:08 | PRG ---
DATE OF SERVICE: 10/19/2017 SUBJECTIVE: The patient was seen and examined, noted with the following vital signs. OBJECTIVE: VITAL SIGNS: Blood pressure 120/67, pulse of 79, respiratory rate of 18 and O2 sat 97%. HEENT: Unremarkable. CARDIOVASCULAR SYSTEM: First and second heart sounds were heard. RESPIRATORY SYSTEM: Clear to auscultation. No rales. DIGESTIVE SYSTEM: Revealed a benign abdomen with positive bowel sounds. EXTREMITIES: No peripheral edema. IMPRESSION: 1. Acute on chronic kidney disease, which seems to be improving. 2. Gastrointestinal bleed followed by the unit reactor operator. PLAN: 1. We will continue with current renal supportive measures. 2. No indication for any dialytic intervention since admission. 3. Further management to be dependent on the clinical course.
[2017-10-19] MEDS ORDERED: Norepinephrine 8 MG in Sodium Chloride 0.9% 250 ML 250 ML IVPB PRN (20:22)
[2017-10-19] MEDS: Amoxicillin/Potassium Clav 875 MG TAB PO SCH (20:51)
[2017-10-20] MEDS: Pantoprazole 80 MG in Sodium Chloride 0.9% 100 ML IVP SCH ×3 (03:36→23:13)
[2017-10-20] MEDS ORDERED: Diprivan 20 ML ONE (08:05)
[2017-10-20] MEDS ORDERED: Lidocaine 2% Jelly 5 ML TUBE ONE (08:13)
[2017-10-20] MEDS ORDERED: Oxymetazoline HCl 0.05% ( 15 ML ) ONE (08:42)
[2017-10-20] MEDS: Sodium Chloride 0.9% 1,000 ML IV SCH ×2 (09:26→23:14)
[2017-10-20] MEDS: Amoxicillin/Potassium Clav 875 MG TAB PO SCH ×2 (10:11→21:04)
--- NOTE | 2017-10-20 10:59 | OP ---
DATE OF PROCEDURE: 10/20/2017 SURGEON: Dusty Ramirez M.D. PROCEDURE: Esophagogastroduodenoscopy with control of hemorrhage. PREOPERATIVE DIAGNOSIS: Upper gastrointestinal bleed. She had an EGD 2 days ago that showed fresh clot in the proximal stomach chamber; however interventio n could not be applied at that point. PROCEDURE IN DETAIL: Informed consent was obtained. The patient was sedated with total intravenous anesthesia. The bite block was placed and the endoscope was advanced easily to the second portion of the duodenum and retroflexion was performed in the stomach. The esophagus was normal. The GE junct ion was normal. She has evidence of a prior vertical band gastroplasty for weight loss surgery. The re was a 1 cm ulcer in the proximal stomach chamber. This had an adherent fixed clot in the base. T his could not be removed by suction or washing it with water or rubbing over it with an injection pro be. The site was injected with epinephrine and 3 sites with 1 mL of epinephrine 1:10,000. In light of her persistently elevated coags and use of Xarelto and renal failure the ulcer base was treated wi th 2 Hemoclips. There was some mild oozing from the base prior to treatment, oozing of blood. The H emoclip confirmed good hemostasis. The distal stomach was normal including retroflexed views. The p ylorus and first and second portions of the duodenum were normal. IMPRESSION: Ulcer in the proximal stomach with a fixed adherent clot and some active oozing from the base. This appears high risk for recurrent bleeding. The site was treated with epinephrine and gus cement of 2 Hemoclips with good hemostasis confirmed. RECOMMENDATIONS: 1. Continue proton pump inhibitor drip. 2. Check H. pylori antibody.
--- NOTE | 2017-10-20 11:36 | PDOC.PN ---
- Subjective Encounter Start Date: 10/20/17 Encounter Start Time: 10:40 she was hypotensive last night, required levophed drip, this morning she had endoscopy and found with ulcer she had bleeding with nasal trocar - Objective Resuscitation Status: Resuscitation Status DNR:Do Not Resuscitate MAR Reviewed: Yes Vital Signs & Weight: Vital Signs (12 hours) Temp Pulse Resp Pulse Ox 10/20/17 08:00 97.9 F 75 16 95 10/20/17 07:56 94 L 10/20/17 07:54 75 16 94 L 10/20/17 07:00 98.3 F 10/20/17 04:00 98.9 F 10/20/17 02:36 71 10/20/17 02:35 71 19 97 10/20/17 00:00 98.8 F 100 Weight Admit Weight 361 lb Weight 367 lb 11.697 oz Most Recent Monitor Data Heart Rate from ECG 84 NIBP 146/70 NIBP BP-Mean 87 Respiration from ECG 18 SpO2 100 I&O: 10/19/17 10/20/17 10/21/17 06:59 06:59 06:59 Intake Total 3171.4 3169.2 50 Output Total 1765 2545 355 Balance 1406.4 624.2 -305 Result Diagrams: 10/19/17 05:30 10/19/17 05:30 Additional Labs: Accuchecks 10/20/17 10/20/17 10/20/17 09:53 07:09 06:22 POC Glucose 89 86 72 10/20/17 10/19/17 10/19/17 06:15 20:50 15:54 POC Glucose 62 L 86 82 EKG Reviewed by me: Yes (nsr) Phys Exam - Physical Examination Constitutional: NAD HEENT: PERRLA, moist MMs, sclera anicteric Neck: no JVD, supple Respiratory: no wheezing, no rales, no rhonchi Cardiovascular: RRR, no significant murmur, no rub Gastrointestinal: soft, non-tender, no distention, positive bowel sounds morbid obesity Musculoskeletal: no edema, pulses present Neurological: non-focal Lymphatic: no nodes Psychiatric: normal affect Skin: no rash, normal turgor Dx/Plan (1) Acute metabolic encephalopathy Code(s): G93.41 - METABOLIC ENCEPHALOPATHY Status: Resolved (2) Acute on chronic diastolic (congestive) heart failure Code(s): I50.33 - ACUTE ON CHRONIC DIASTOLIC (CONGESTIVE) HEART FAILURE Status : Acute (3) Acute on chronic kidney failure Code(s): N17.9 - ACUTE KIDNEY FAILURE, UNSPECIFIED; N18.9 - CHRONIC KIDNEY DISEASE, UNSPECIFIED Status: Acute Comment: improving (4) Acute respiratory failure with hypoxia Code(s): J96.01 - ACUTE RESPIRATORY FAILURE WITH HYPOXIA Status: Acute Comment: extubated (5) Demand ischemia of myocardium Code(s): I24.8 - OTHER FORMS OF ACUTE ISCHEMIC HEART DISEASE Status: Acute (6) Anxiety and depression Code(s): F41.8 - OTHER SPECIFIED ANXIETY DISORDERS Status: Chronic (7) Chronic anticoagulation Code(s): Z79.01 - ONLINE MERCHANT (CURRENT) USE OF ANTICOAGULANTS Status: Chronic Comment: currently off due to GI bleed (8) Diabetes type 2, controlled Code(s): E11.9 - TYPE 2 DIABETES MELLITUS WITHOUT COMPLICATIONS Status: Chronic (9) GERD (gastroesophageal reflux disease) Code(s): K21.9 - GASTRO-ESOPHAGEAL REFLUX DISEASE WITHOUT ESOPHAGITIS Status: Chronic (10) Morbid obesity with BMI of 50.0-59.9, adult Code(s): E66.01 - MORBID (SEVERE) OBESITY DUE TO EXCESS CALORIES; Z68.43 - BODY MASS INDEX (BMI) 50-59.9 , ADULT Status: Chronic (11) Paroxysmal atrial fibrillation Code(s): I48.0 - PAROXYSMAL ATRIAL FIBRILLATION Status: Chronic (12) Severe tricuspid regurgitation Code(s): I07.1 - RHEUMATIC TRICUSPID INSUFFICIENCY Status: Chronic (13) CVA (cerebral vascular accident) Code(s): I63.9 - CEREBRAL INFARCTION, UNSPECIFIED Status: Suspected (14) GI bleed Code(s): K92.2 - GASTROINTESTINAL HEMORRHAGE, UNSPECIFIED Status: Resolved (15) Hyperkalemia Code(s): E87.5 - HYPERKALEMIA Status: Resolved (16) Hypotension Status: Resolved (17) Gastric ulcer Code(s): K25.9 - GASTRIC ULCER, UNSP ACUTE OR CHRONIC, W/O HEMOR OR PERF Status: Acute Qualifiers: Gastric ulcer chronicity: acute Gastric ulcer complication status: with hemorrhage Qualified Code(s): K25.0 - Acute gastric ulcer with hemorrhage - Plan cont current plan of care, continue antibiotics * continue protonix drip as per GI * wean off levophed today * monitor in ccu today * medication reviewed as below * symptomatic treatment. Review of Systems - Review of Systems Other: not reliable due to her level of cognitive status - Medications/Allergies Allergies/Adverse Reactions: Allergies Allergy/AdvReac Type Severity Reaction Status Date / Time iodine Allergy Verified 10/17/17 23:12 Medications: Current Medications Acetaminophen (Tylenol) 650 mg [place] Q4H PRN PRN Reason: Headache/Fever or Mild Pain Acetaminophen (Tylenol) 1,000 mg PO Q6H PRN PRN Reason: Headache/Fever or Mild Pain Albuterol/Ipratropium (Duoneb) 3 ml NEB [id number] Last Admin: 10/20/17 07:54 Dose: 3 ml Amoxicillin/Clavulanate Potassium (Augmentin) 875 mg PO Q12HR [facility] Last Admin: 10/20/17 10:11 Dose: 875 mg Dextrose/Water (Dextrose 50%) 25 gm SLOW IVP PRN PRN PRN Reason: Hypoglycemia Last Admin: 10/20/17 06:23 Dose: 12.5 gm Glucagon (Glucagon) 1 mg IM PRN PRN PRN Reason: Hypoglycemia Dextrose/Water (D5w) 1,000 mls @ 0 mls/hr IV .Q0M PRN; As Directed PRN Reason: Hypoglycemia Sodium Chloride (Normal Saline 0.9%) 1,000 mls @ 75 mls/hr IV .[id number] [facility] Last Admin: 10/20/17 09:26 Dose: 1,000 mls Potassium Chloride 40 meq/ (Sodium Chloride) 270 mls @ 135 mls/hr IVPB ASDIR PRN PRN Reason: FOR SERUM K+ 2.5 - 3.5 Potassium Chloride 40 meq/ (Device) 100 mls @ 50 mls/hr IVPB ASDIR PRN PRN Reason: FOR SERUM K+ 2.5 - 3.5 Magnesium Sulfate 1 gm/ Sodium (Chloride) 102 mls @ 102 mls/hr IV PRN PRN PRN Reason: MAG LEVEL 1.4 - 2.0 Magnesium Sulfate 2 gm/ Device 100 mls @ 100 mls/hr IVPB ASDIR PRN PRN Reason: MAGNESIUM < 1.4 Potassium Phosphate 9 mmol/ (Sodium Chloride) 103 mls @ 25.75 mls/hr IVPB ASDIR PRN PRN Reason: Phosphate 1.0-1.8 Potassium Phosphate 12 mmol/ (Sodium Chloride) 254 mls @ 63.5 mls/hr IV ASDIR PRN PRN Reason: Serum phosphate 0.5-0.9 Potassium Phosphate 15 mmol/ (Sodium Chloride) 255 mls @ 63.75 mls/hr IV ASDIR PRN PRN Reason: Serum Phos < 0.5 Pantoprazole Sodium 80 mg/ (Sodium Chloride) 100 mls @ 10 mls/hr IVP INF [facility] Last Admin: 10/20/17 03:36 Dose: 100 mls Norepinephrine Bitartrate 8 mg (/ Sodium Chloride) 258 mls @ 0 mls/hr IVPB INF PRN; Protocol; Titrate PRN Reason: SBP Last Admin: 10/19/17 20:51 Dose: 258 mls Insulin Human Lispro (Humalog) 0 units SC .MODERATE SLIDING SC PRN PRN Reason: Moderate Correctional Scale Insulin Human Lispro (Humalog) 0 units SC .BEDTIME SLIDING SC PRN PRN Reason: Bedtime Correctional Scale Lorazepam (Ativan) 2 mg SLOW IVP Q2H PRN PRN Reason: Anxiety to achieve Xiong 2-3 Stop: 11/17/17 04:36 Last Admin: 10/18/17 15:43 Dose: 2 mg Magnesium Oxide (Magnesium Oxide) 400 mg PO BIDPRN PRN PRN Reason: FOR SERUM MAG 1.4 - 2.0 Magnesium Oxide (Magnesium Oxide) 800 mg PO PRN PRN PRN Reason: FOR SERUM MAG < 1.4 Miscellaneous Medication (Phos-Nak) 1 pkt PO TIDPRN PRN PRN Reason: FOR PHOS LEVEL 1.0 - 1.8 Miscellaneous Medication (Phos-Nak) 2 pkt PO TIDPRN PRN PRN Reason: FOR PHOS LEVEL 0.5 - 1.0 Morphine Sulfate (Morphine) 2 mg SLOW IVP Q2H PRN PRN Reason: Breakthrough pain Stop: 11/17/17 04:36 Discontinue Previous Narcotic Pain Medications And Benzodiazepines 1 each FS .ONE [facility] Stop: 11/17/17 04:36 Ccu Electrolyte (Replacement Protocol) 0 each FS PRN PRN PRN Reason: FOR ELECTROLYTE REPLACEMENT Ondansetron HCl (Zofran Odt) 4 mg PO Q6H PRN PRN Reason: Nausea/Vomiting Ondansetron HCl (Zofran) 4 mg IVP Q6H PRN PRN Reason: Nausea/Vomiting Last Admin: 10/20/17 09:26 Dose: 4 mg Potassium Chloride (K-Dur) 40 meq PO ASDIR PRN PRN Reason: FOR SERUM K+ 2.5 - 3.5 Potassium Chloride (Klor-Con) 40 meq PER TUBE ASDIR PRN PRN Reason: FOR SERUM K+ 2.5-3.5
--- NOTE | 2017-10-20 13:17 | PRG ---
DATE OF SERVICE: 10/20/2017 SUBJECTIVE: Enid Miller is smiling symmetrical smile. She moves all extremities equally. OBJECTIVE: VITAL SIGNS: She is not febrile, blood pressure 106/56, heart rate 77, and respiratory rate 18. GENERAL: She says she tolerated sleeping with BiPAP last night. LUNGS: Clear. HEART: Regular rhythm. ABDOMEN: Soft. IMPRESSION: 1. Subacute cerebrovascular accident. 2. Gastrointestinal blood loss, appears to be stabilized. There was some bleeding noted this ileananin g on upper endoscopy, so she will stay in the Critical Care Unit for now. 3. Probable untreated sleep apnea. She will continue to sleep with BiPAP. 4. Deconditioning and obesity. PLAN: We will continue supportive care. She will remain off anticoagulants at this time (she is chr onically anticoagulated on Eliquis prior to this admission). ADDENDUM: Repeat chem 7 will be ordered in the morning given that her creatinine is over 2 and she has obviousl y chronic kidney disease.
--- NOTE | 2017-10-20 16:19 | PRG ---
DATE OF SERVICE: 10/20/2017 SUBJECTIVE: The patient was seen and examined, still on TPN, with the following vital signs. OBJECTIVE: VITAL SIGNS: Pulse rate of 82, blood pressure 99/71, respiratory rate of 13, O2 sat 86% to 97%. HEENT: Remarkable for endotracheal tube in place. CARDIOVASCULAR SYSTEM: First and second heart sounds were heard. RESPIRATORY SYSTEM: Revealed a lot of transmitted sounds. DIGESTIVE SYSTEM: Revealed an obese abdomen. EXTREMITIES: No peripheral edema. LABORATORY INVESTIGATIONS: Showed a creatinine of 2.33, BUN of 61. IMPRESSION: 1. Acute on chronic kidney disease, which seems to be improving on the current conservative measures . 2. Gastrointestinal bleed followed by the ironing worker. PLAN: 1. Continue current renal supportive measures. 2. Further management to be dependent on the clinical course.
[2017-10-20] MEDS: Acetaminophen 500 MG TAB PO PRN (17:13)
[2017-10-21 05:22] LABS: #Eosinphils 0.2 thou/uL (0.0-0.7); #Lymphocytes 0.9 thou/uL (1.20-3.40); #Monocytes 0.7 thou/uL (0.11-0.59); %Basophils 0.3 % (0.0-1.0); %Eosinophils 2.1 % (0.0-10.0); %Lymphocytes 11.4 % (21.0-51.0); %Monocytes 8.5 % (0.0-10.0); %Neutrophils 77.8 % (42.0-75.0); Hemoglobin 11.7 g/dL (12.0-16.0); MDiff Complete? YES; Macrocytosis SLIGHT = 6-15 cells (100X) (0-5/hpf); Mean Corpuscular HGB CONC 31.2 g/dL (32.0-36.0); Mean Corpuscular Hemoglobin 33.3 pg (27.0-31.0); PLT Morphology Comment Appears Decreased; Platelet Count 110 thou/uL (130-400); Red Blood Cell (RBC) Count 3.52 mill/uL (4.20-5.40); White Blood Cell (WBC) Count 7.8 thou/uL (4.8-10.8)
[2017-10-21 05:36] LABS: ALT (SGPT) 14 U/L (8-55); AST (SGOT) 12 U/L (5-34); Albumin 3.1 g/dL (3.4-4.8); Alkaline Phosphatase 59 U/L (40-150); Anion Gap 12 mmol/L (10-20); BUN (Urea Nitrogen) 25 mg/dL (9.8-20.1); Bilirubin, Total 1.1 mg/dL (0.2-1.2); Calc. Creatinine Clearance 208 mL/min (70-130); Calcium 8.8 mg/dL (7.8-10.44); Carbon Dioxide 36 mmol/L (23-31); Chloride 105 mmol/L (98-107); Estimated GFR-MDRD 86; Globulin 2.4 g/dL (2.4-3.5); Glucose 90 mg/dL (80-115); Potassium 3.6 mmol/L (3.5-5.1); Protein, Total 5.5 g/dL (6.0-8.3); Sodium 149 mmol/L (136-145)
[2017-10-21] MEDS: Amoxicillin/Potassium Clav 875 MG TAB PO SCH ×2 (08:21→20:45)
[2017-10-21] MEDS: Pantoprazole 80 MG in Sodium Chloride 0.9% 100 ML IVP SCH (08:21)
--- NOTE | 2017-10-21 10:24 | PRG ---
DATE OF SERVICE: 10/21/2017 SERVICE: Pulmonary Medicine. INTERVAL HISTORY: The patient is doing okay from a respiratory standpoint. I find her awake and natasha rt. She is in no apparent distress. She indicates no chest pain, shortness of breath or cough. She is hoping for BiPAP brake at some point today. Otherwise, there has been no interval change to her condition. PHYSICAL EXAMINATION: VITAL SIGNS: Afebrile, pulse 116, blood pressure 126/75, respirations 23, saturation 100% on 30% FiO 2. GENERAL: The patient is awake and alert, in no apparent distress. LUNGS: Good air entry bilaterally. There is not a prolonged expiratory phase. No crackles are appr eciated. HEART: Normal rate and regular. ABDOMEN: Soft, nontender, and nondistended. Bowel sounds are positive. MUSCULOSKELETAL: No cyanosis or clubbing. There is trace pitting in the bilateral lower extremities . NEUROLOGIC: Grossly nonfocal. LABORATORY DATA: WBC 7.8, hemoglobin 11.7, and platelets 110,000. Bicarbonate 36. Basic metabolic profile is otherwise unremarkable. Sodium 149. This is up trending. Liver function studies remain unremarkable. Blood sugars are perfect. Potassium 3.6. ASSESSMENT: 1. Morbid obesity. 2. Obstructive sleep apnea, suspected. 3. Acute blood loss anemia. 4. Cardiovascular accident, subacute. 5. Deconditioning, severe. PLAN: We will continue BiPAP at bedtime and p.r.n. sleep. The patient can be transitioned out of e ICU to IMCU to the stroke unit. We will increase her free water to touch and replace a dose of pot assium today. Pulmonary or Critical Care will continue to follow while the patient remains in this l ocation.
[2017-10-21] MEDS: Acetaminophen 500 MG TAB PO PRN (10:37)
[2017-10-21] MEDS ORDERED: Digoxin 0.5 MG/2 ML AMP SLOW IVP SCH (11:45)
[2017-10-21] MEDS: Sodium Chloride 0.45% 1,000 ML IV SCH ×2 (11:47→23:39)
--- NOTE | 2017-10-21 12:09 | EKG ---
Test Reason : Blood Pressure : / mmHG Vent. Rate : 066 BPM Atrial Rate : 066 BPM P-R Int : 170 ms QRS Dur : 100 ms QT Int : 444 ms P-R-T Axes : -13 036 -03 degrees QTc Int : 465 ms Normal sinus rhythm Cannot rule out Inferior infarct , age undetermined Cannot rule out Anterior infarct , age undetermined Abnormal ECG Confirmed by NICOLE NESS, LAUREN ([id number]), supervising editor trailer MEGHANA ARMENTA ([id number]) on 10/21/2017 12:08:41 PM Referred By: NICOLE Confirmed By:LAUREN RIVERA MD
--- NOTE | 2017-10-21 12:54 | PDOC.PN ---
- Subjective Encounter Start Date: 10/21/17 Encounter Start Time: 09:30 Patient seen and examined. No new complaints. No overnight events pt has variable heart rate, on low dose of levophed - Objective Resuscitation Status: Resuscitation Status DNR:Do Not Resuscitate MAR Reviewed: Yes Vital Signs & Weight: Vital Signs (12 hours) Temp Pulse Resp Pulse Ox 10/21/17 11:48 79 10/21/17 11:00 97.7 F 10/21/17 07:18 99 10/21/17 07:15 79 13 99 10/21/17 06:58 97.9 F 78 21 H 100 10/21/17 06:52 97.9 F 10/21/17 04:00 98.7 F 10/21/17 02:28 78 15 100 Weight Admit Weight 361 lb Weight 371 lb 14.717 oz Most Recent Monitor Data Heart Rate from ECG 149 NIBP 84/50 NIBP BP-Mean 63 Respiration from ECG 17 SpO2 98 I&O: 10/20/17 10/21/17 10/22/17 06:59 06:59 06:59 Intake Total 3169.2 2106 90 Output Total 2545 1710 300 Balance 624.2 396 -210 Result Diagrams: 10/21/17 04:20 10/21/17 04:20 Additional Labs: Accuchecks 10/21/17 10/20/17 10/20/17 12:16 21:18 16:18 POC Glucose 75 73 73 EKG Reviewed by me: Yes (afib) Phys Exam - Physical Examination Constitutional: NAD HEENT: PERRLA, moist MMs, sclera anicteric Neck: no JVD, supple Respiratory: no wheezing, no rales, no rhonchi Cardiovascular: no significant murmur, irregular Gastrointestinal: soft, non-tender, no distention, positive bowel sounds morbid obesity limiting exam Musculoskeletal: no edema, pulses present Neurological: moves all 4 limbs Lymphatic: no nodes Psychiatric: normal affect Skin: no rash, normal turgor Dx/Plan (1) Acute metabolic encephalopathy Code(s): G93.41 - METABOLIC ENCEPHALOPATHY Status: Resolved (2) Acute on chronic diastolic (congestive) heart failure Code(s): I50.33 - ACUTE ON CHRONIC DIASTOLIC (CONGESTIVE) HEART FAILURE Status : Acute (3) Acute on chronic kidney failure Code(s): N17.9 - ACUTE KIDNEY FAILURE, UNSPECIFIED; N18.9 - CHRONIC KIDNEY DISEASE, UNSPECIFIED Status: Acute Comment: improving (4) Acute respiratory failure with hypoxia Code(s): J96.01 - ACUTE RESPIRATORY FAILURE WITH HYPOXIA Status: Acute Comment: extubated (5) Demand ischemia of myocardium Code(s): I24.8 - OTHER FORMS OF ACUTE ISCHEMIC HEART DISEASE Status: Acute (6) Anxiety and depression Code(s): F41.8 - OTHER SPECIFIED ANXIETY DISORDERS Status: Chronic (7) Chronic anticoagulation Code(s): Z79.01 - DETENTION (CURRENT) USE OF ANTICOAGULANTS Status: Chronic Comment: currently off due to GI bleed (8) Diabetes type 2, controlled Code(s): E11.9 - TYPE 2 DIABETES MELLITUS WITHOUT COMPLICATIONS Status: Chronic (9) GERD (gastroesophageal reflux disease) Code(s): K21.9 - GASTRO-ESOPHAGEAL REFLUX DISEASE WITHOUT ESOPHAGITIS Status: Chronic (10) Morbid obesity with BMI of 50.0-59.9, adult Code(s): E66.01 - MORBID (SEVERE) OBESITY DUE TO EXCESS CALORIES; Z68.43 - BODY MASS INDEX (BMI) 50-59.9 , ADULT Status: Chronic (11) Paroxysmal atrial fibrillation Code(s): I48.0 - PAROXYSMAL ATRIAL FIBRILLATION Status: Chronic (12) Severe tricuspid regurgitation Code(s): I07.1 - RHEUMATIC TRICUSPID INSUFFICIENCY Status: Chronic (13) CVA (cerebral vascular accident) Code(s): I63.9 - CEREBRAL INFARCTION, UNSPECIFIED Status: Suspected (14) GI bleed Code(s): K92.2 - GASTROINTESTINAL HEMORRHAGE, UNSPECIFIED Status: Resolved (15) Hyperkalemia Code(s): E87.5 - HYPERKALEMIA Status: Resolved (16) Hypotension Status: Resolved - Plan cont current plan of care * renal function improved to normal * start IVF * medication reviewed as below * symptomatic treatment * continue protonix drip * monitor H & H * monitor in CCU. Review of Systems - Review of Systems Other: not reliable due to her cognitive status - Medications/Allergies Allergies/Adverse Reactions: Allergies Allergy/AdvReac Type Severity Reaction Status Date / Time iodine Allergy Verified 10/17/17 23:12 Medications: Current Medications Acetaminophen (Tylenol) 650 mg [place] Q4H PRN PRN Reason: Headache/Fever or Mild Pain Acetaminophen (Tylenol) 1,000 mg PO Q6H PRN PRN Reason: Headache/Fever or Mild Pain Last Admin: 10/21/17 10:37 Dose: 1,000 mg Albuterol/Ipratropium (Duoneb) 3 ml NEB [id number] [facility] Last Admin: 10/21/17 07:15 Dose: 3 ml Amoxicillin/Clavulanate Potassium (Augmentin) 875 mg PO Q12HR [facility] Last Admin: 10/21/17 08:21 Dose: 875 mg Dextrose/Water (Dextrose 50%) 25 gm SLOW IVP PRN PRN PRN Reason: Hypoglycemia Last Admin: 10/20/17 06:23 Dose: 12.5 gm Digoxin (Lanoxin) 0.25 mg SLOW IVP 1145 [facility] Stop: 10/21/17 13:00 Last Admin: 10/21/17 11:48 Dose: 0.25 mg Digoxin (Lanoxin) 0.125 mg SLOW IVP 0000,1800 [facility] Stop: 10/22/17 00:01 Digoxin (Lanoxin) 0.125 mg SLOW IVP DAILY [facility] Glucagon (Glucagon) 1 mg IM PRN PRN PRN Reason: Hypoglycemia Dextrose/Water (D5w) 1,000 mls @ 0 mls/hr IV .Q0M PRN; As Directed PRN Reason: Hypoglycemia Potassium Chloride 40 meq/ (Sodium Chloride) 270 mls @ 135 mls/hr IVPB ASDIR PRN PRN Reason: FOR SERUM K+ 2.5 - 3.5 Potassium Chloride 40 meq/ (Device) 100 mls @ 50 mls/hr IVPB ASDIR PRN PRN Reason: FOR SERUM K+ 2.5 - 3.5 Magnesium Sulfate 1 gm/ Sodium (Chloride) 102 mls @ 102 mls/hr IV PRN PRN PRN Reason: MAG LEVEL 1.4 - 2.0 Magnesium Sulfate 2 gm/ Device 100 mls @ 100 mls/hr IVPB ASDIR PRN PRN Reason: MAGNESIUM < 1.4 Potassium Phosphate 9 mmol/ (Sodium Chloride) 103 mls @ 25.75 mls/hr IVPB ASDIR PRN PRN Reason: Phosphate 1.0-1.8 Potassium Phosphate 12 mmol/ (Sodium Chloride) 254 mls @ 63.5 mls/hr IV ASDIR PRN PRN Reason: Serum phosphate 0.5-0.9 Potassium Phosphate 15 mmol/ (Sodium Chloride) 255 mls @ 63.75 mls/hr IV ASDIR PRN PRN Reason: Serum Phos < 0.5 Pantoprazole Sodium 80 mg/ (Sodium Chloride) 100 mls @ 10 mls/hr IVP INF [facility] Last Admin: 10/21/17 08:21 Dose: 100 mls Norepinephrine Bitartrate 8 mg (/ Sodium Chloride) 258 mls @ 0 mls/hr IVPB INF PRN; Protocol; Titrate PRN Reason: SBP Last Admin: 10/19/17 20:51 Dose: 258 mls Sodium Chloride (1/2 Normal Saline) 1,000 mls @ 75 mls/hr IV .[id number] [facility] Last Admin: 10/21/17 11:47 Dose: 1,000 mls Insulin Human Lispro (Humalog) 0 units SC .MODERATE SLIDING SC PRN PRN Reason: Moderate Correctional Scale Insulin Human Lispro (Humalog) 0 units SC .BEDTIME SLIDING SC PRN PRN Reason: Bedtime Correctional Scale Lorazepam (Ativan) 2 mg SLOW IVP Q2H PRN PRN Reason: Anxiety to achieve Xiong 2-3 Stop: 11/17/17 04:36 Last Admin: 10/18/17 15:43 Dose: 2 mg Magnesium Oxide (Magnesium Oxide) 400 mg PO BIDPRN PRN PRN Reason: FOR SERUM MAG 1.4 - 2.0 Magnesium Oxide (Magnesium Oxide) 800 mg PO PRN PRN PRN Reason: FOR SERUM MAG < 1.4 Miscellaneous Medication (Phos-Nak) 1 pkt PO TIDPRN PRN PRN Reason: FOR PHOS LEVEL 1.0 - 1.8 Miscellaneous Medication (Phos-Nak) 2 pkt PO TIDPRN PRN PRN Reason: FOR PHOS LEVEL 0.5 - 1.0 Morphine Sulfate (Morphine) 2 mg SLOW IVP Q2H PRN PRN Reason: Breakthrough pain Stop: 11/17/17 04:36 Discontinue Previous Narcotic Pain Medications And Benzodiazepines 1 each FS .ONE [facility] Stop: 11/17/17 04:36 Ccu Electrolyte (Replacement Protocol) 0 each FS PRN PRN PRN Reason: FOR ELECTROLYTE REPLACEMENT Ondansetron HCl (Zofran Odt) 4 mg PO Q6H PRN PRN Reason: Nausea/Vomiting Ondansetron HCl (Zofran) 4 mg IVP Q6H PRN PRN Reason: Nausea/Vomiting Last Admin: 10/20/17 09:26 Dose: 4 mg Potassium Chloride (K-Dur) 40 meq PO ASDIR PRN PRN Reason: FOR SERUM K+ 2.5 - 3.5 Potassium Chloride (Klor-Con) 40 meq PER TUBE ASDIR PRN PRN Reason: FOR SERUM K+ 2.5-3.5
[2017-10-21] MEDS: Digoxin 0.5 MG/2 ML AMP SLOW IVP SCH ×2 (16:53→23:43)
--- NOTE | 2017-10-21 17:15 | PRG ---
DATE OF SERVICE: 10/21/2017 SUBJECTIVE: Ms. Miller has had no bloody stool output. She has no abdominal pain or acute complain ts at this time. OBJECTIVE: VITAL SIGNS: Temperature is 97.9, pulse 83, blood pressure 127/58. GENERAL: She is in no acute distress. She is awake and alert. LUNGS: Clear to auscultation bilaterally. CARDIOVASCULAR: Tachycardic and irregular. ABDOMEN: Soft, nontender, nondistended. EXTREMITIES: Trace lower extremity edema. LABORATORY DATA: White blood cell count 7.8, hemoglobin 11.7, platelets 110 and creatinine 0.68. ASSESSMENT AND PLAN: 1. Anemia secondary to acute blood loss. 2. Ulcer in the proximal stomach, treated with Hemoclip. No further overt bleeding now. 3. Atrial fibrillation with rapid ventricular response. She is on low dose pressors, but this does not appear to be hypotension due to her blood loss acutely. She has been fluid resuscitated. RECOMMENDATIONS: 1. Advance to a soft diet. 2. Change from the pantoprazole drip to IV pantoprazole 40 mg twice daily tomorrow morning. 3. When she is tolerating adequate oral intake, then she can switch to p.o. administration, the pant oprazole. 4. I will sign off for now. Please call if GI can be of assistance.
[2017-10-22 05:12] LABS: Anion Gap 9 mmol/L (10-20); BUN (Urea Nitrogen) 16 mg/dL (9.8-20.1); Calc. Creatinine Clearance 228 mL/min (70-130); Calcium 8.6 mg/dL (7.8-10.44); Carbon Dioxide 36 mmol/L (23-31); Chloride 103 mmol/L (98-107); Estimated GFR-MDRD Greater than 90; Glucose 98 mg/dL (80-115); Potassium 3.6 mmol/L (3.5-5.1); Sodium 144 mmol/L (136-145)
[2017-10-22] MEDS: Amoxicillin/Potassium Clav 875 MG TAB PO SCH ×2 (08:29→20:35)
[2017-10-22] MEDS: Digoxin 0.5 MG/2 ML AMP SLOW IVP SCH (08:30)
[2017-10-22] MEDS: Pantoprazole 40 MG VIAL IVP SCH ×2 (08:30→20:35)
[2017-10-22] MEDS: Acetaminophen 500 MG TAB PO PRN ×2 (09:33→20:35)
--- NOTE | 2017-10-22 11:25 | PDOC.PN ---
- Subjective Encounter Start Date: 10/22/17 Encounter Start Time: 10:00 Patient seen and examined. No new complaints. No overnight events now off levophed drip, heart rate controlled, vital stable - Objective Resuscitation Status: Resuscitation Status DNR:Do Not Resuscitate MAR Reviewed: Yes Vital Signs & Weight: Vital Signs (12 hours) Temp Pulse Resp Pulse Ox 10/22/17 11:21 91 18 100 10/22/17 11:00 97.7 F 10/22/17 08:30 85 10/22/17 07:45 98.3 F 85 15 92 L 10/22/17 07:13 99 10/22/17 07:10 85 15 99 10/22/17 06:55 97.8 F 10/22/17 04:00 98.2 F 10/22/17 02:29 95 16 96 10/22/17 02:27 93 10/22/17 00:00 98.8 F 96 10/21/17 23:43 90 Weight Admit Weight 361 lb Weight 374 lb 5.518 oz Most Recent Monitor Data Heart Rate from ECG 96 NIBP 116/59 NIBP BP-Mean 77 Respiration from ECG 20 SpO2 98 I&O: 10/21/17 10/22/17 10/23/17 06:59 06:59 06:59 Intake Total 2106 3049 240 Output Total 1710 1425 235 Balance 396 1624 5 Result Diagrams: 10/21/17 04:20 10/22/17 04:20 Additional Labs: Accuchecks 10/21/17 10/21/17 10/21/17 20:41 16:09 12:16 POC Glucose 82 77 75 EKG Reviewed by me: Yes Phys Exam - Physical Examination Constitutional: NAD HEENT: PERRLA, moist MMs, sclera anicteric Neck: no JVD, supple Respiratory: no wheezing, no rales, no rhonchi Cardiovascular: no significant murmur, irregular Gastrointestinal: soft, non-tender, no distention, positive bowel sounds morbid obesity Musculoskeletal: no edema, pulses present Neurological: non-focal, normal sensation Lymphatic: no nodes Psychiatric: normal affect, A&O x 3 Skin: no rash, normal turgor Dx/Plan (1) Acute metabolic encephalopathy Code(s): G93.41 - METABOLIC ENCEPHALOPATHY Status: Resolved (2) Acute on chronic diastolic (congestive) heart failure Code(s): I50.33 - ACUTE ON CHRONIC DIASTOLIC (CONGESTIVE) HEART FAILURE Status : Acute (3) Acute on chronic kidney failure Code(s): N17.9 - ACUTE KIDNEY FAILURE, UNSPECIFIED; N18.9 - CHRONIC KIDNEY DISEASE, UNSPECIFIED Status: Acute Comment: improving (4) Acute respiratory failure with hypoxia Code(s): J96.01 - ACUTE RESPIRATORY FAILURE WITH HYPOXIA Status: Acute Comment: extubated (5) Demand ischemia of myocardium Code(s): I24.8 - OTHER FORMS OF ACUTE ISCHEMIC HEART DISEASE Status: Acute (6) Anxiety and depression Code(s): F41.8 - OTHER SPECIFIED ANXIETY DISORDERS Status: Chronic (7) Chronic anticoagulation Code(s): Z79.01 - IMMIGRATION GUARD (CURRENT) USE OF ANTICOAGULANTS Status: Chronic Comment: currently off due to GI bleed (8) Diabetes type 2, controlled Code(s): E11.9 - TYPE 2 DIABETES MELLITUS WITHOUT COMPLICATIONS Status: Chronic (9) GERD (gastroesophageal reflux disease) Code(s): K21.9 - GASTRO-ESOPHAGEAL REFLUX DISEASE WITHOUT ESOPHAGITIS Status: Chronic (10) Morbid obesity with BMI of 50.0-59.9, adult Code(s): E66.01 - MORBID (SEVERE) OBESITY DUE TO EXCESS CALORIES; Z68.43 - BODY MASS INDEX (BMI) 50-59.9 , ADULT Status: Chronic (11) Paroxysmal atrial fibrillation Code(s): I48.0 - PAROXYSMAL ATRIAL FIBRILLATION Status: Chronic (12) Severe tricuspid regurgitation Code(s): I07.1 - RHEUMATIC TRICUSPID INSUFFICIENCY Status: Chronic (13) CVA (cerebral vascular accident) Code(s): I63.9 - CEREBRAL INFARCTION, UNSPECIFIED Status: Suspected (14) GI bleed Code(s): K92.2 - GASTROINTESTINAL HEMORRHAGE, UNSPECIFIED Status: Resolved (15) Hyperkalemia Code(s): E87.5 - HYPERKALEMIA Status: Resolved (16) Hypotension Status: Resolved - Plan cont current plan of care, costa catheter, continue antibiotics, 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 Review of Systems - Review of Systems Constitutional: weakness. negative: fever, chills, sweats, malaise, other ENT: negative: Ear Pain, Ear Discharge, Nose Pain, Nose Discharge, Nose Congestion, Mouth Pain, Mouth Swelling, Throat Pain, Throat Swelling, Other Respiratory: negative: Cough, Dry, Shortness of Breath, Hemoptysis, SOB with Excertion, Pleuritic Pain, Sputum, Wheezing Cardiovascular: negative: chest pain, palpitations, orthopnea, paroxysmal nocturnal dyspnea, edema, light headedness, other Gastrointestinal: negative: Nausea, Vomiting, Abdominal Pain, Diarrhea, Constipation, Melena, Hematochezia, Other Genitourinary: negative: Dysuria, Frequency, Incontinence, Hematuria, Retention , Other Musculoskeletal: negative: Neck Pain, Shoulder Pain, Arm Pain, Back Pain, Hand Pain, Leg Pain, Foot Pain, Other - Medications/Allergies Allergies/Adverse Reactions: Allergies Allergy/AdvReac Type Severity Reaction Status Date / Time iodine Allergy Verified 10/17/17 23:12 Medications: Current Medications Acetaminophen (Tylenol) 650 mg MD Q4H PRN PRN Reason: Headache/Fever or Mild Pain Acetaminophen (Tylenol) 1,000 mg PO Q6H PRN PRN Reason: Headache/Fever or Mild Pain Last Admin: 10/22/17 09:33 Dose: 1,000 mg Albuterol/Ipratropium (Duoneb) 3 ml NEB G1RH-NC [facility] Last Admin: 10/22/17 11:21 Dose: 3 ml Amoxicillin/Clavulanate Potassium (Augmentin) 875 mg PO Q12HR [facility] Last Admin: 10/22/17 08:29 Dose: 875 mg Dextrose/Water (Dextrose 50%) 25 gm SLOW IVP PRN PRN PRN Reason: Hypoglycemia Last Admin: 10/20/17 06:23 Dose: 12.5 gm Digoxin (Lanoxin) 0.125 mg SLOW IVP DAILY [facility] Last Admin: 10/22/17 08:30 Dose: 0.125 mg Glucagon (Glucagon) 1 mg IM PRN PRN PRN Reason: Hypoglycemia Dextrose/Water (D5w) 1,000 mls @ 0 mls/hr IV .Q0M PRN; As Directed PRN Reason: Hypoglycemia Potassium Chloride 40 meq/ (Sodium Chloride) 270 mls @ 135 mls/hr IVPB ASDIR PRN PRN Reason: FOR SERUM K+ 2.5 - 3.5 Potassium Chloride 40 meq/ (Device) 100 mls @ 50 mls/hr IVPB ASDIR PRN PRN Reason: FOR SERUM K+ 2.5 - 3.5 Magnesium Sulfate 1 gm/ Sodium (Chloride) 102 mls @ 102 mls/hr IV PRN PRN PRN Reason: MAG LEVEL 1.4 - 2.0 Magnesium Sulfate 2 gm/ Device 100 mls @ 100 mls/hr IVPB ASDIR PRN PRN Reason: MAGNESIUM < 1.4 Potassium Phosphate 9 mmol/ (Sodium Chloride) 103 mls @ 25.75 mls/hr IVPB ASDIR PRN PRN Reason: Phosphate 1.0-1.8 Potassium Phosphate 12 mmol/ (Sodium Chloride) 254 mls @ 63.5 mls/hr IV ASDIR PRN PRN Reason: Serum phosphate 0.5-0.9 Potassium Phosphate 15 mmol/ (Sodium Chloride) 255 mls @ 63.75 mls/hr IV ASDIR PRN PRN Reason: Serum Phos < 0.5 Norepinephrine Bitartrate 8 mg (/ Sodium Chloride) 258 mls @ 0 mls/hr IVPB INF PRN; Protocol; Titrate PRN Reason: SBP Last Admin: 10/19/17 20:51 Dose: 258 mls Sodium Chloride (1/2 Normal Saline) 1,000 mls @ 75 mls/hr IV .[id number] [facility] Last Admin: 10/21/17 23:39 Dose: 1,000 mls Insulin Human Lispro (Humalog) 0 units SC .MODERATE SLIDING SC PRN PRN Reason: Moderate Correctional Scale Insulin Human Lispro (Humalog) 0 units SC .BEDTIME SLIDING SC PRN PRN Reason: Bedtime Correctional Scale Magnesium Oxide (Magnesium Oxide) 400 mg PO BIDPRN PRN PRN Reason: FOR SERUM MAG 1.4 - 2.0 Magnesium Oxide (Magnesium Oxide) 800 mg PO PRN PRN PRN Reason: FOR SERUM MAG < 1.4 Miscellaneous Medication (Phos-Nak) 1 pkt PO TIDPRN PRN PRN Reason: FOR PHOS LEVEL 1.0 - 1.8 Miscellaneous Medication (Phos-Nak) 2 pkt PO TIDPRN PRN PRN Reason: FOR PHOS LEVEL 0.5 - 1.0 Morphine Sulfate (Morphine) 2 mg SLOW IVP Q2H PRN PRN Reason: Breakthrough pain Stop: 11/17/17 04:36 Discontinue Previous Narcotic Pain Medications And Benzodiazepines 1 each FS .ONE MICHEAL Stop: 11/17/17 04:36 Ccu Electrolyte (Replacement Protocol) 0 each FS PRN PRN PRN Reason: FOR ELECTROLYTE REPLACEMENT Ondansetron HCl (Zofran Odt) 4 mg PO Q6H PRN PRN Reason: Nausea/Vomiting Ondansetron HCl (Zofran) 4 mg IVP Q6H PRN PRN Reason: Nausea/Vomiting Last Admin: 10/20/17 09:26 Dose: 4 mg Pantoprazole Sodium (Protonix) 40 mg IVP Q12HR [facility] Last Admin: 10/22/17 08:30 Dose: 40 mg Potassium Chloride (K-Dur) 40 meq PO ASDIR PRN PRN Reason: FOR SERUM K+ 2.5 - 3.5 Potassium Chloride (Klor-Con) 40 meq PER TUBE ASDIR PRN PRN Reason: FOR SERUM K+ 2.5-3.5
[2017-10-22] MEDS: Sodium Chloride 0.45% 1,000 ML IV SCH (14:10)
--- NOTE | 2017-10-22 15:31 | PRG ---
DATE OF SERVICE: 10/22/2017 SERVICE: Pulmonary Medicine. INTERVAL HISTORY: The patient is doing really quite fine from a respiratory standpoint. I walked in the room and she was sleeping very comfortably. That being said, her lips and face were blue. I ge ntly woke her up and immediately, she had improvement in her color. Her sats were correlating well w ith telemetry. Her sats were in the 60s and promptly bumped up to 98%. She did not use her BiPAP la st night. I have reminded respiratory therapy that they need to make certain that whenever she is sl eeping that she is using her BiPAP. Otherwise, there has been no interval change to her condition. PHYSICAL EXAMINATION: VITAL SIGNS: Afebrile, pulse 102, blood pressure 96/45, respirations 24, saturation 97% on 3 liters nasal cannula. GENERAL: The patient is awake, alert, no apparent distress. LUNGS: Decreased air entry with no prolonged expiratory phase. I do not appreciate wheezing, rhonch i or crackles. HEART: Normal rate, regular. ABDOMEN: Soft, nontender, nondistended. Bowel sounds are positive. MUSCULOSKELETAL: No cyanosis or clubbing. No pitting in the bilateral lower extremities. NEUROLOGIC: Grossly nonfocal. LABORATORY DATA: Sodium has improved to 144. Potassium 3.6. Basic metabolic profile is otherwise u nremarkable. Creatinine 0.63. ASSESSMENT: 1. Morbid obesity. 2. Obstructive sleep apnea, severe. 3. Obese hypoventilation syndrome. 4. Cerebrovascular accident, subacute. 5. Acute blood loss anemia. 6. Deconditioning, severe. DISCUSSION AND PLAN: The patient is going to be moved to the [facility]. She will need to wear her BiPAP whenever she is sleeping for and all night long. She can also use it on a p.r.n. basis. I will drop her free water off a little bit. Pulmonary Critical Care will continue to follow while the patient remains in the hospital.
--- NOTE | 2017-10-22 17:54 | PRG ---
DATE OF SERVICE: 10/22/2017 The patient was seen and examined, seems to be doing much better, hemodynamically stable. OBJECTIVE: HEENT: Unremarkable with moist oral mucosa. No conjunctival injection or icterus. NECK: Supple. CARDIOVASCULAR: First and second heart sounds were heard. RESPIRATORY: Clear to auscultation. DIGESTIVE: Revealed an obese abdomen. EXTREMITIES: No peripheral edema. SKIN: No new gross rash. LYMPHATIC SYSTEM: No peripheral lymphadenopathy. IMPRESSION: 1. Acute kidney injury which seems to have been greatly improved with creatinine back to baseline. 2. Hypernatremia, improving on free water repletion. 3. Acute respiratory failure dependent on BiPAP. PLAN: 1. The patient to continue with current renal supportive measures as well as pulmonary support. 2. Further management to be dependent on the clinical course.
[2017-10-23] MEDS: Sodium Chloride 0.45% 1,000 ML IV SCH (01:53)
[2017-10-23 05:35] LABS: Anion Gap 8 mmol/L (10-20); BUN (Urea Nitrogen) 9 mg/dL (9.8-20.1); Calc. Creatinine Clearance 243 mL/min (70-130); Calcium 8.5 mg/dL (7.8-10.44); Carbon Dioxide 36 mmol/L (23-31); Chloride 101 mmol/L (98-107); Estimated GFR-MDRD Greater than 90; Glucose 109 mg/dL (80-115); Potassium 3.4 mmol/L (3.5-5.1); Sodium 142 mmol/L (136-145)
[2017-10-23] MEDS: Digoxin 0.5 MG/2 ML AMP SLOW IVP SCH (08:39)
[2017-10-23] MEDS: Amoxicillin/Potassium Clav 875 MG TAB PO SCH ×2 (08:39→21:41)
[2017-10-23] MEDS: Pantoprazole 40 MG VIAL IVP SCH ×2 (08:39→21:43)
[2017-10-23] MEDS ORDERED: Milk Of Magnesia 30 ML UDCUP PO PRN (08:41)
[2017-10-23] MEDS ORDERED: Chloraseptic Spray 180 ml Bottle PO PRN (08:41)
[2017-10-23] MEDS ORDERED: Loperamide HCl 2 MG CAP PO PRN (08:41)
[2017-10-23] MEDS ORDERED: Bisacodyl 10 MG SUPP PR PRN (08:41)
[2017-10-23] MEDS ORDERED: Artificial Tears 18 DROP/0.9 ML EA EYE PRN (08:41)
[2017-10-23] MEDS ORDERED: Eucerin (Mineral Oil/Petrolatum,White) 30 gm Jar TOP PRN (08:41)
[2017-10-23] MEDS ORDERED: Loratadine 10 MG TAB PO PRN (08:41)
[2017-10-23] MEDS ORDERED: Mag-Al 1200 mg/1200 mg/30 ML UDCUP PO PRN (08:41)
[2017-10-23] MEDS ORDERED: Acetaminophen 325 MG TAB PO PRN (08:41)
[2017-10-23] MEDS ORDERED: Sodium Chloride 0.65% Nasal 44 ML BOT EA NARE PRN (08:41)
[2017-10-23] MEDS ORDERED: hydrALAZINE 20 MG/ML VIAL SLOW IVP PRN (08:41)
[2017-10-23] MEDS ORDERED: Senokot 8.6 MG TAB PO PRN (08:41)
[2017-10-23 09:23] VITALS: BMI 60.5
[2017-10-23] MEDS: NS 0.9% w/ 20 MEQ KCL 1,000 ML/1,000 ML BAG IV SCH (09:38)
[2017-10-23] MEDS: busPIRone HCl 10 MG TAB PO SCH ×2 (09:38→21:42)
[2017-10-23] MEDS: Atorvastatin Calcium 20 MG TAB PO SCH (09:38)
--- NOTE | 2017-10-23 11:50 | PDOC.PN ---
- Subjective Encounter Start Date: 10/23/17 Encounter Start Time: 09:15 Patient seen and examined. No new complaints. No overnight events - Objective Resuscitation Status: Resuscitation Status DNR:Do Not Resuscitate MAR Reviewed: Yes Vital Signs & Weight: Vital Signs (12 hours) Temp Pulse Resp BP Pulse Ox 10/23/17 11:44 97 18 96 10/23/17 09:06 98 10/23/17 09:04 98 19 98 10/23/17 08:39 91 10/23/17 08:00 97.8 F 98 19 98 10/23/17 07:25 97.8 F 75 22 H 126/52 L 98 10/23/17 03:23 98.2 F 91 18 106/44 L 97 10/23/17 02:51 92 20 98 Weight Admit Weight 361 lb 5.402 oz Weight 376 lb 12.8 oz Most Recent Monitor Data Heart Rate from ECG 100 NIBP 70/54 NIBP BP-Mean 58 Respiration from ECG 25 SpO2 95 I&O: 10/22/17 10/23/17 10/24/17 06:59 06:59 06:59 Intake Total 3049 3682 480 Output Total 1425 2295 Balance 1624 1387 480 Result Diagrams: 10/21/17 04:20 10/23/17 04:43 Additional Labs: Accuchecks 10/23/17 10/23/17 10/22/17 07:33 05:28 20:41 POC Glucose 106 107 116 H 10/22/17 17:26 POC Glucose 108 EKG Reviewed by me: Yes Phys Exam - Physical Examination Constitutional: NAD HEENT: PERRLA, moist MMs, sclera anicteric Neck: no JVD, supple Respiratory: no wheezing, no rales, no rhonchi Cardiovascular: no significant murmur, no rub, irregular Gastrointestinal: soft, non-tender, no distention, positive bowel sounds Musculoskeletal: no edema, pulses present Neurological: non-focal Lymphatic: no nodes Psychiatric: normal affect, A&O x 3 Skin: no rash, normal turgor Dx/Plan (1) Acute metabolic encephalopathy Code(s): G93.41 - METABOLIC ENCEPHALOPATHY Status: Resolved (2) Acute on chronic diastolic (congestive) heart failure Code(s): I50.33 - ACUTE ON CHRONIC DIASTOLIC (CONGESTIVE) HEART FAILURE Status : Acute (3) Acute on chronic kidney failure Code(s): N17.9 - ACUTE KIDNEY FAILURE, UNSPECIFIED; N18.9 - CHRONIC KIDNEY DISEASE, UNSPECIFIED Status: Acute Comment: improving (4) Acute respiratory failure with hypoxia Code(s): J96.01 - ACUTE RESPIRATORY FAILURE WITH HYPOXIA Status: Acute Comment: extubated (5) Demand ischemia of myocardium Code(s): I24.8 - OTHER FORMS OF ACUTE ISCHEMIC HEART DISEASE Status: Acute (6) Anxiety and depression Code(s): F41.8 - OTHER SPECIFIED ANXIETY DISORDERS Status: Chronic (7) Chronic anticoagulation Code(s): 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 Status: Chronic Comment: currently off due to GI bleed (8) Diabetes type 2, controlled Code(s): E11.9 - TYPE 2 DIABETES MELLITUS WITHOUT COMPLICATIONS Status: Chronic (9) GERD (gastroesophageal reflux disease) Code(s): K21.9 - GASTRO-ESOPHAGEAL REFLUX DISEASE WITHOUT ESOPHAGITIS Status: Chronic (10) Morbid obesity with BMI of 50.0-59.9, adult Code(s): E66.01 - MORBID (SEVERE) OBESITY DUE TO EXCESS CALORIES; Z68.43 - BODY MASS INDEX (BMI) 50-59.9 , ADULT Status: Chronic (11) Paroxysmal atrial fibrillation Code(s): I48.0 - PAROXYSMAL ATRIAL FIBRILLATION Status: Chronic (12) Severe tricuspid regurgitation Code(s): I07.1 - RHEUMATIC TRICUSPID INSUFFICIENCY Status: Chronic (13) CVA (cerebral vascular accident) Code(s): I63.9 - CEREBRAL INFARCTION, UNSPECIFIED Status: Suspected (14) GI bleed Code(s): K92.2 - GASTROINTESTINAL HEMORRHAGE, UNSPECIFIED Status: Resolved (15) Hyperkalemia Code(s): E87.5 - HYPERKALEMIA Status: Resolved (16) Hypotension Status: Resolved - Plan cont current plan of care, PT/OT, social worker aide * pt will need placement * otherwise she is stable and improving * will restart her selected home medication * medication reviewed as below * symptomatic treatment. Review of Systems - Review of Systems Constitutional: negative: fever, chills, sweats, weakness, malaise, other ENT: negative: Ear Pain, Ear Discharge, Nose Pain, Nose Discharge, Nose Congestion, Mouth Pain, Mouth Swelling, Throat Pain, Throat Swelling, Other Respiratory: negative: Cough, Dry, Shortness of Breath, Hemoptysis, SOB with Excertion, Pleuritic Pain, Sputum, Wheezing Cardiovascular: negative: chest pain, palpitations, orthopnea, paroxysmal nocturnal dyspnea, edema, light headedness, other Gastrointestinal: negative: Nausea, Vomiting, Abdominal Pain, Diarrhea, Constipation, Melena, Hematochezia, Other Genitourinary: negative: Dysuria, Frequency, Incontinence, Hematuria, Retention , Other Musculoskeletal: negative: Neck Pain, Shoulder Pain, Arm Pain, Back Pain, Hand Pain, Leg Pain, Foot Pain, Other - Medications/Allergies Allergies/Adverse Reactions: Allergies Allergy/AdvReac Type Severity Reaction Status Date / Time iodine Allergy Verified 10/17/17 23:12 Medications: Current Medications Acetaminophen (Tylenol) 650 mg PO Q4H PRN PRN Reason: Headache/Fever or Mild Pain Hydrocodone Bitart/Acetaminophen ([place] 5/325) 1 tab PO Q4H PRN PRN Reason: Moderate Pain (4-6) Al Hydroxide/Mg Hydroxide (Maalox) 15 ml PO Q4H PRN PRN Reason: Heartburn or Indigestion Albuterol/Ipratropium (Duoneb) 3 ml NEB [id number] [facility] Last Admin: 10/23/17 11:44 Dose: 3 ml Amoxicillin/Clavulanate Potassium (Augmentin) 875 mg PO Q12HR [facility] Last Admin: 10/23/17 08:39 Dose: 875 mg Artificial Tears (Tears Naturale) 0 drop EA EYE PRN PRN PRN Reason: Dry Eyes Atorvastatin Calcium (Lipitor) 20 mg PO DAILY [facility] Last Admin: 10/23/17 09:38 Dose: 20 mg Bisacodyl (Dulcolax) 10 mg SC DAILYPRN PRN PRN Reason: Constipation Buspirone HCl (Buspar) 10 mg PO BID [facility] Last Admin: 10/23/17 09:38 Dose: 10 mg Dextrose/Water (Dextrose 50%) 25 gm SLOW IVP PRN PRN PRN Reason: Hypoglycemia Last Admin: 10/20/17 06:23 Dose: 12.5 gm Digoxin (Lanoxin) 0.125 mg SLOW IVP DAILY [facility] Last Admin: 10/23/17 08:39 Dose: 0.125 mg Glucagon (Glucagon) 1 mg IM PRN PRN PRN Reason: Hypoglycemia Guaifenesin (Robitussin Sf) 200 mg PO Q4H PRN PRN Reason: Cough Hydralazine HCl (Apresoline) 10 mg SLOW IVP Q4H PRN PRN Reason: Systolic BP > 180 Dextrose/Water (D5w) 1,000 mls @ 0 mls/hr IV .Q0M PRN; As Directed PRN Reason: Hypoglycemia Potassium Chloride/Sodium Chloride (Ns 0.9% W/ 20 Meq Kcl) 1,000 ml in 1,000 mls @ 50 mls/hr IV .Q20H [facility] Last Admin: 10/23/17 09:38 Dose: 1,000 mls Insulin Human Lispro (Humalog) 0 units SC .MODERATE SLIDING SC PRN PRN Reason: Moderate Correctional Scale Insulin Human Lispro (Humalog) 0 units SC .BEDTIME SLIDING SC PRN PRN Reason: Bedtime Correctional Scale Levothyroxine Sodium (Synthroid) 112 mcg PO 0600 [facility] Loperamide HCl (Imodium) 2 mg PO PRN PRN PRN Reason: Diarrhea/Loose Stools Loratadine (Claritin) 10 mg PO DAILYPRN PRN PRN Reason: Sinus Symptoms Magnesium Hydroxide (Milk Of Magnesium) 30 ml PO DAILYPRN PRN PRN Reason: Constipation Mineral Oil/White Petrolatum (Eucerin Cream) 0 gm TOP BIDPRN PRN PRN Reason: Dry Skin Ondansetron HCl (Zofran Odt) 4 mg PO Q6H PRN PRN Reason: Nausea/Vomiting Last Admin: 10/23/17 10:45 Dose: 4 mg Ondansetron HCl (Zofran) 4 mg IVP Q6H PRN PRN Reason: Nausea/Vomiting Last Admin: 10/20/17 09:26 Dose: 4 mg Pantoprazole Sodium (Protonix) 40 mg IVP Q12HR [facility] Last Admin: 10/23/17 08:39 Dose: 40 mg Phenol (Chloraseptic [place] 180 Ml Bot) 0 ml PO PRN PRN PRN Reason: Sore Throat Ropinirole HCl (Requip) 3 mg PO HS [facility] Senna (Senokot) 2 tab PO HSPRN PRN PRN Reason: Constipation Sodium Chloride ([place] Nasal [place] 0.65%) 0 ml EA NARE QIDPRN PRN PRN Reason: Nasal Congestion Venlafaxine HCl (Effexor) 150 mg PO BID [facility] Last Admin: 10/23/17 09:38 Dose: 150 mg
--- NOTE | 2017-10-23 19:54 | PRG ---
DATE OF SERVICE: 10/23/2017 SUBJECTIVE: Talking to her , talking to her, she is basically nonambulatory prior to this adm ission. Her and her son said she would maybe take two steps to a bedside commode, and that w as about all she did during the day. OBJECTIVE: VITAL SIGNS: She is afebrile, heart rate is 97, respiratory rate is 18, oximetry is 96, blood pressu re 124/59. LUNGS: Clear. HEART: Regular rhythm. ABDOMEN: Soft. LABORATORY DATA: No new lab other than blood glucoses. IMPRESSION: 1. Subacute cerebrovascular accident on presentation? leading to altered mental status. 2. Gastrointestinal bleeding that appears to have resolved. 3. Status post intubation for altered mental status 4. Obesity and deconditioning. 5. Probable sleep apnea. 6. Anticoagulation for atrial fibrillation being held now for gastrointestinal bleeding. Hopefully, she would qualify for rehabilitation. She has chronic kidney disease, which appears to be stable. Since she is fairly bedridden at home, discharge home at some point may be a reasonable option, altho ugh this would have to be sorted out with the family. They are usually here, so she appears to be st able from a pulmonary standpoint. She will need a sleep study at a later day.
[2017-10-23] MEDS: rOPINIRole HCl 1 MG TAB PO SCH (21:42)
[2017-10-24] MEDS: NS 0.9% w/ 20 MEQ KCL 1,000 ML/1,000 ML BAG IV SCH (03:25)
[2017-10-24] MEDS: Diabetic Tussin 200 MG/10 ML UDCUP PO PRN (04:04)
[2017-10-24] MEDS: Levothyroxine Sodium 112 MCG TAB PO SCH (05:53)
[2017-10-24 06:23] LABS: Anion Gap 9 mmol/L (10-20); BUN (Urea Nitrogen) 9 mg/dL (9.8-20.1); Calc. Creatinine Clearance 248 mL/min (70-130); Calcium 8.3 mg/dL (7.8-10.44); Carbon Dioxide 37 mmol/L (23-31); Chloride 101 mmol/L (98-107); Estimated GFR-MDRD Greater than 90; Glucose 94 mg/dL (80-115); Potassium 3.8 mmol/L (3.5-5.1); Sodium 143 mmol/L (136-145)
[2017-10-24] MEDS: Amoxicillin/Potassium Clav 875 MG TAB PO SCH ×2 (08:59→20:25)
[2017-10-24] MEDS: Atorvastatin Calcium 20 MG TAB PO SCH (08:59)
[2017-10-24] MEDS: busPIRone HCl 10 MG TAB PO SCH ×2 (08:59→20:25)
[2017-10-24] MEDS: Pantoprazole 40 MG VIAL IVP SCH ×2 (09:03→20:25)
[2017-10-24] MEDS: Digoxin 0.5 MG/2 ML AMP SLOW IVP SCH (09:04)
--- NOTE | 2017-10-24 10:50 | PDOC.PN ---
- Subjective Encounter Start Date: 10/24/17 Encounter Start Time: 07:10 Patient seen and examined. No new complaints. No overnight events - Objective Resuscitation Status: Resuscitation Status DNR:Do Not Resuscitate MAR Reviewed: Yes Vital Signs & Weight: Vital Signs (12 hours) Temp Pulse Resp BP Pulse Ox 10/24/17 10:42 102 H 20 10/24/17 09:04 97 10/24/17 08:00 97.8 F 97 18 94 L 10/24/17 07:30 97.8 F 97 18 130/56 L 94 L 10/24/17 06:50 98 16 10/24/17 03:34 98.6 F 98 18 127/53 L 91 L 10/24/17 02:20 99 10/23/17 23:30 98.2 F 94 17 138/96 H 97 Weight Admit Weight 361 lb 5.402 oz Weight 378 lb 3.2 oz Most Recent Monitor Data Heart Rate from ECG 100 NIBP 70/54 NIBP BP-Mean 58 Respiration from ECG 25 SpO2 95 I&O: 10/23/17 10/24/17 10/25/17 06:59 06:59 06:59 Intake Total 3682 1860 Output Total 2295 1050 Balance 1387 810 Result Diagrams: 10/21/17 04:20 10/24/17 05:22 Additional Labs: Accuchecks 10/24/17 10/23/17 10/23/17 05:15 21:40 16:45 POC Glucose 95 114 H 107 10/23/17 11:38 POC Glucose 121 H EKG Reviewed by me: Yes Phys Exam - Physical Examination Constitutional: NAD HEENT: PERRLA, moist MMs, sclera anicteric Neck: no JVD, supple Respiratory: no wheezing, no rales, no rhonchi Cardiovascular: no significant murmur, no rub, irregular Gastrointestinal: soft, non-tender, no distention, positive bowel sounds Musculoskeletal: no edema, pulses present Neurological: non-focal Lymphatic: no nodes Psychiatric: normal affect Skin: no rash, normal turgor Dx/Plan (1) Acute metabolic encephalopathy Code(s): G93.41 - METABOLIC ENCEPHALOPATHY Status: Resolved (2) Acute on chronic diastolic (congestive) heart failure Code(s): I50.33 - ACUTE ON CHRONIC DIASTOLIC (CONGESTIVE) HEART FAILURE Status : Acute (3) Acute on chronic kidney failure Code(s): N17.9 - ACUTE KIDNEY FAILURE, UNSPECIFIED; N18.9 - CHRONIC KIDNEY DISEASE, UNSPECIFIED Status: Acute Comment: improving (4) Acute respiratory failure with hypoxia Code(s): J96.01 - ACUTE RESPIRATORY FAILURE WITH HYPOXIA Status: Acute Comment: extubated (5) Demand ischemia of myocardium Code(s): I24.8 - OTHER FORMS OF ACUTE ISCHEMIC HEART DISEASE Status: Acute (6) Anxiety and depression Code(s): F41.8 - OTHER SPECIFIED ANXIETY DISORDERS Status: Chronic (7) Chronic anticoagulation Code(s): Z79.01 - ALF (CURRENT) USE OF ANTICOAGULANTS Status: Chronic Comment: currently off due to GI bleed (8) Diabetes type 2, controlled Code(s): E11.9 - TYPE 2 DIABETES MELLITUS WITHOUT COMPLICATIONS Status: Chronic (9) GERD (gastroesophageal reflux disease) Code(s): K21.9 - GASTRO-ESOPHAGEAL REFLUX DISEASE WITHOUT ESOPHAGITIS Status: Chronic (10) Morbid obesity with BMI of 50.0-59.9, adult Code(s): E66.01 - MORBID (SEVERE) OBESITY DUE TO EXCESS CALORIES; Z68.43 - BODY MASS INDEX (BMI) 50-59.9 , ADULT Status: Chronic (11) Paroxysmal atrial fibrillation Code(s): I48.0 - PAROXYSMAL ATRIAL FIBRILLATION Status: Chronic (12) Severe tricuspid regurgitation Code(s): I07.1 - RHEUMATIC TRICUSPID INSUFFICIENCY Status: Chronic (13) CVA (cerebral vascular accident) Code(s): I63.9 - CEREBRAL INFARCTION, UNSPECIFIED Status: Suspected (14) GI bleed Code(s): K92.2 - GASTROINTESTINAL HEMORRHAGE, UNSPECIFIED Status: Resolved (15) Hyperkalemia Code(s): E87.5 - HYPERKALEMIA Status: Resolved (16) Hypotension Status: Resolved - Plan cont current plan of care, PT/OT, 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 Review of Systems - Review of Systems ENT: negative: Ear Pain, Ear Discharge, Nose Pain, Nose Discharge, Nose Congestion, Mouth Pain, Mouth Swelling, Throat Pain, Throat Swelling, Other Respiratory: negative: Cough, Dry, Shortness of Breath, Hemoptysis, SOB with Excertion, Pleuritic Pain, Sputum, Wheezing Cardiovascular: negative: chest pain, palpitations, orthopnea, paroxysmal nocturnal dyspnea, edema, light headedness, other Gastrointestinal: negative: Nausea, Vomiting, Abdominal Pain, Diarrhea, Constipation, Melena, Hematochezia, Other Genitourinary: negative: Dysuria, Frequency, Incontinence, Hematuria, Retention , Other Musculoskeletal: negative: Neck Pain, Shoulder Pain, Arm Pain, Back Pain, Hand Pain, Leg Pain, Foot Pain, Other - Medications/Allergies Allergies/Adverse Reactions: Allergies Allergy/AdvReac Type Severity Reaction Status Date / Time iodine Allergy Verified 10/17/17 23:12 Medications: Current Medications Acetaminophen (Tylenol) 650 mg PO Q4H PRN PRN Reason: Headache/Fever or Mild Pain Hydrocodone Bitart/Acetaminophen ([place] 5/325) 1 tab PO Q4H PRN PRN Reason: Moderate Pain (4-6) Al Hydroxide/Mg Hydroxide (Maalox) 15 ml PO Q4H PRN PRN Reason: Heartburn or Indigestion Albuterol/Ipratropium (Duoneb) 3 ml NEB [id number] [facility] Last Admin: 10/24/17 10:42 Dose: 3 ml Amoxicillin/Clavulanate Potassium (Augmentin) 875 mg PO Q12HR [facility] Last Admin: 10/24/17 08:59 Dose: 875 mg Artificial Tears (Tears Naturale) 0 drop EA EYE PRN PRN PRN Reason: Dry Eyes Atorvastatin Calcium (Lipitor) 20 mg PO DAILY [facility] Last Admin: 10/24/17 08:59 Dose: 20 mg Bisacodyl (Dulcolax) 10 mg [place] DAILYPRN PRN PRN Reason: Constipation Buspirone HCl (Buspar) 10 mg PO BID [facility] Last Admin: 10/24/17 08:59 Dose: 10 mg Dextrose/Water (Dextrose 50%) 25 gm SLOW IVP PRN PRN PRN Reason: Hypoglycemia Last Admin: 10/20/17 06:23 Dose: 12.5 gm Digoxin (Lanoxin) 0.125 mg SLOW IVP DAILY [facility] Last Admin: 10/24/17 09:04 Dose: 0.125 mg Glucagon (Glucagon) 1 mg IM PRN PRN PRN Reason: Hypoglycemia Guaifenesin (Robitussin Sf) 200 mg PO Q4H PRN PRN Reason: Cough Last Admin: 10/24/17 04:04 Dose: 200 mg Hydralazine HCl (Apresoline) 10 mg SLOW IVP Q4H PRN PRN Reason: Systolic BP > 180 Dextrose/Water (D5w) 1,000 mls @ 0 mls/hr IV .Q0M PRN; As Directed PRN Reason: Hypoglycemia Insulin Human Lispro (Humalog) 0 units SC .MODERATE SLIDING SC PRN PRN Reason: Moderate Correctional Scale Insulin Human Lispro (Humalog) 0 units SC .BEDTIME SLIDING SC PRN PRN Reason: Bedtime Correctional Scale Levothyroxine Sodium (Synthroid) 112 mcg PO 0600 [facility] Last Admin: 10/24/17 05:53 Dose: 112 mcg Loperamide HCl (Imodium) 2 mg PO PRN PRN PRN Reason: Diarrhea/Loose Stools Loratadine (Claritin) 10 mg PO DAILYPRN PRN PRN Reason: Sinus Symptoms Magnesium Hydroxide (Milk Of Magnesium) 30 ml PO DAILYPRN PRN PRN Reason: Constipation Mineral Oil/White Petrolatum (Eucerin Cream) 0 gm TOP BIDPRN PRN PRN Reason: Dry Skin Ondansetron HCl (Zofran Odt) 4 mg PO Q6H PRN PRN Reason: Nausea/Vomiting Last Admin: 10/23/17 10:45 Dose: 4 mg Ondansetron HCl (Zofran) 4 mg IVP Q6H PRN PRN Reason: Nausea/Vomiting Last Admin: 10/20/17 09:26 Dose: 4 mg Pantoprazole Sodium (Protonix) 40 mg IVP Q12HR [facility] Last Admin: 10/24/17 09:03 Dose: 40 mg Phenol (Chloraseptic [place] 180 Ml Bot) 0 ml PO PRN PRN PRN Reason: Sore Throat Last Admin: 10/24/17 04:06 Dose: 1 spr Ropinirole HCl (Requip) 3 mg PO HS [facility] Last Admin: 10/23/17 21:42 Dose: 3 mg Senna (Senokot) 2 tab PO HSPRN PRN PRN Reason: Constipation Sodium Chloride ([place] Nasal [place] 0.65%) 0 ml EA NARE QIDPRN PRN PRN Reason: Nasal Congestion Venlafaxine HCl (Effexor) 150 mg PO BID [facility] Last Admin: 10/24/17 08:59 Dose: 150 mg
--- NOTE | 2017-10-24 12:45 | PRG ---
DATE OF SERVICE: 10/23/17. . OBJECTIVE: VITAL SIGNS: Afebrile, blood pressure 122/57, respiratory rate 18. NECK: Supple. HEENT: Unremarkable. CARDIOVASCULAR: First and second heart sounds were heard. RESPIRATORY: . DIGESTIVE: Obese abdomen. EXTREMITIES: No new skin rash. SKIN: No peripheral edema. IMPRESSION: 1. Acute kidney injury . 2. Hypernatremia, . PLAN: 1. Continue current renal supportive measures. 2. Further management to be dependent on the clinical course.
[2017-10-24] MEDS: HYDROcodone/Acetaminophen 5/325 mg Tablet PO PRN (13:42)
[2017-10-24] MEDS: rOPINIRole HCl 1 MG TAB PO SCH (20:25)
--- NOTE | 2017-10-24 21:05 | PRG ---
DATE OF SERVICE: 10/24/2017 SUBJECTIVE: Enid Miller has no complaints. She is doing well. OBJECTIVE: VITAL SIGNS: She is afebrile, heart rate is 90, respiratory rate is 18, oximetry is 97. Her blood p ressures have been stable throughout the day. Her highest blood pressure 155/67 this afternoon. LUNGS: Clear. HEART: Regular rhythm. ABDOMEN: Soft. EXTREMITIES: Without asymmetry. LABORATORY DATA: Sodium 143, potassium 3.8, chloride 101, bicarbonate 37, BUN 9, creatinine 0.58. IMPRESSION: 1. Status post respiratory failure from altered mental status. 2. ?Cerebrovascular accident. 3. Probable obesity hypoventilation/sleep apnea. 4. Chronic kidney disease. 5. Deconditioning with limited activity. 6. Gastrointestinal bleeding which appears to have resolved. 7. History of atrial fibrillation, on anticoagulation. Her anticoagulation will have to be held unt il she is further down the road. PLAN: Continue current care. She is stable to move out to intermediate care unit in my opinion.
[2017-10-25] MEDS: HYDROcodone/Acetaminophen 5/325 mg Tablet PO PRN ×2 (00:21→19:40)
[2017-10-25 04:55] LABS: BUN (Urea Nitrogen) 8 mg/dL (9.8-20.1); Calc. Creatinine Clearance 252 mL/min (70-130); Calcium 8.4 mg/dL (7.8-10.44); Estimated GFR-MDRD Greater than 90; Glucose 104 mg/dL (80-115)
[2017-10-25 05:04] LABS: Anion Gap 8 mmol/L (10-20); Carbon Dioxide 38 mmol/L (23-31); Chloride 100 mmol/L (98-107); Sodium 142 mmol/L (136-145)
[2017-10-25] MEDS: Levothyroxine Sodium 112 MCG TAB PO SCH (05:53)
--- NOTE | 2017-10-25 06:07 | PRG ---
DATE OF SERVICE: 10/25/2017 SUBJECTIVE: The patient was seen and examined, seems to be doing much better. PHYSICAL EXAMINATION: VITAL SIGNS: Blood pressure 155/67, respiratory rate 18, O2 sat 97% with a heart rate of 90. HEENT: Unremarkable. CARDIOVASCULAR: First and second heart sounds were heard. RESPIRATORY: Clear to auscultation. DIGESTIVE: Revealed a benign abdomen. EXTREMITIES: No peripheral edema. SKIN: No new gross rash. LABORATORY INVESTIGATIONS: Significant for creatinine that has gone down towards the normal range. IMPRESSION: 1. Acute on chronic kidney disease which seems to have responded to medical and renal supportive karri atment. 2. Pulmonary failure in the context of possible hypoventilation syndrome. 3. Compensatory metabolic alkalosis in the context of respiratory acidosis from hypercapnic respirat ory failure/hypoventilation syndrome. PLAN: 1. We will continue current renal supportive measures. 2. To support the decision of discontinuation of IV fluid as the patient will not need for this anym ore. 3. Further management to be dependent on the clinical course.
[2017-10-25] MEDS: Amoxicillin/Potassium Clav 875 MG TAB PO SCH ×2 (09:45→19:38)
[2017-10-25] MEDS: busPIRone HCl 10 MG TAB PO SCH ×2 (09:46→19:38)
[2017-10-25] MEDS: Atorvastatin Calcium 20 MG TAB PO SCH (09:47)
[2017-10-25] MEDS: Pantoprazole 40 MG VIAL IVP SCH (09:47)
[2017-10-25] MEDS ORDERED: Digoxin 0.125 MG TAB PO SCH (10:00)
[2017-10-25] MEDS: Digoxin 0.5 MG/2 ML AMP SLOW IVP SCH (10:21)
--- NOTE | 2017-10-25 10:43 | PDOC.PN ---
- Subjective Encounter Start Date: 10/25/17 Encounter Start Time: 07:10 Patient seen and examined. No new complaints. No overnight events - Objective Resuscitation Status: Resuscitation Status DNR:Do Not Resuscitate MAR Reviewed: Yes Vital Signs & Weight: Vital Signs (12 hours) Temp Pulse Resp BP Pulse Ox 10/25/17 10:23 95 16 10/25/17 10:21 89 10/25/17 09:46 89 10/25/17 08:20 99 16 10/25/17 07:53 98.5 F 89 19 99 10/25/17 07:29 98.5 F 89 19 156/78 H 99 10/25/17 04:00 98.6 F 98 20 162/80 H 94 L 10/25/17 02:41 95 10/25/17 02:40 88 21 H 95 10/25/17 00:00 98.9 F 93 22 H 141/63 H 96 10/24/17 22:47 94 10/24/17 22:46 94 17 97 Weight Admit Weight 361 lb 5.402 oz Weight 378 lb 3.2 oz Most Recent Monitor Data Heart Rate from ECG 100 NIBP 70/54 NIBP BP-Mean 58 Respiration from ECG 25 SpO2 95 I&O: 10/24/17 10/25/17 10/26/17 06:59 06:59 06:59 Intake Total 1860 1470 Output Total 1050 1025 Balance 810 445 Result Diagrams: 10/21/17 04:20 10/25/17 04:25 Additional Labs: Accuchecks 10/25/17 10/24/17 10/24/17 05:55 20:29 16:41 POC Glucose 93 121 H 101 10/24/17 11:07 POC Glucose 116 H EKG Reviewed by me: Yes (afib) Phys Exam - Physical Examination Constitutional: NAD HEENT: PERRLA, moist MMs, sclera anicteric Neck: no JVD, supple Respiratory: no wheezing, no rales, no rhonchi Cardiovascular: no significant murmur, irregular Gastrointestinal: soft, non-tender, no distention, positive bowel sounds obesity+ Musculoskeletal: no edema, pulses present Neurological: moves all 4 limbs Lymphatic: no nodes Psychiatric: normal affect Skin: no rash, normal turgor Dx/Plan (1) Acute metabolic encephalopathy Code(s): G93.41 - METABOLIC ENCEPHALOPATHY Status: Resolved (2) Acute on chronic diastolic (congestive) heart failure Code(s): I50.33 - ACUTE ON CHRONIC DIASTOLIC (CONGESTIVE) HEART FAILURE Status : Resolved (3) Acute on chronic kidney failure Code(s): N17.9 - ACUTE KIDNEY FAILURE, UNSPECIFIED; N18.9 - CHRONIC KIDNEY DISEASE, UNSPECIFIED Status: Resolved Comment: improving (4) Acute respiratory failure with hypoxia Code(s): J96.01 - ACUTE RESPIRATORY FAILURE WITH HYPOXIA Status: Resolved Comment: extubated (5) Demand ischemia of myocardium Code(s): I24.8 - OTHER FORMS OF ACUTE ISCHEMIC HEART DISEASE Status: Acute (6) Anxiety and depression Code(s): F41.8 - OTHER SPECIFIED ANXIETY DISORDERS Status: Chronic (7) Chronic anticoagulation Code(s): Z79.01 - [facility] (CURRENT) USE OF ANTICOAGULANTS Status: Chronic Comment: currently off due to GI bleed (8) Diabetes type 2, controlled Code(s): E11.9 - TYPE 2 DIABETES MELLITUS WITHOUT COMPLICATIONS Status: Chronic (9) GERD (gastroesophageal reflux disease) Code(s): K21.9 - GASTRO-ESOPHAGEAL REFLUX DISEASE WITHOUT ESOPHAGITIS Status: Chronic (10) Morbid obesity with BMI of 50.0-59.9, adult Code(s): E66.01 - MORBID (SEVERE) OBESITY DUE TO EXCESS CALORIES; Z68.43 - BODY MASS INDEX (BMI) 50-59.9 , ADULT Status: Chronic (11) Paroxysmal atrial fibrillation Code(s): I48.0 - PAROXYSMAL ATRIAL FIBRILLATION Status: Chronic (12) Severe tricuspid regurgitation Code(s): I07.1 - RHEUMATIC TRICUSPID INSUFFICIENCY Status: Chronic (13) CVA (cerebral vascular accident) Code(s): I63.9 - CEREBRAL INFARCTION, UNSPECIFIED Status: Suspected (14) GI bleed Code(s): K92.2 - GASTROINTESTINAL HEMORRHAGE, UNSPECIFIED Status: Resolved (15) Hyperkalemia Code(s): E87.5 - HYPERKALEMIA Status: Resolved (16) Hypotension Status: Resolved - Plan cont current plan of care, PT/OT, psychotherapist social worker * change digoxin PO * at this point as pt requires bipap duering night time, that is main issue for her placement * if pulmonary ok, we can try cpap during night time on tele floor * social work is working on her placement * she is otherwise stable and has much improvement * medication reviewed as below * symptomatic treatment. Review of Systems - Review of Systems ENT: negative: Ear Pain, Ear Discharge, Nose Pain, Nose Discharge, Nose Congestion, Mouth Pain, Mouth Swelling, Throat Pain, Throat Swelling, Other Respiratory: negative: Cough, Dry, Shortness of Breath, Hemoptysis, SOB with Excertion, Pleuritic Pain, Sputum, Wheezing Cardiovascular: negative: chest pain, palpitations, orthopnea, paroxysmal nocturnal dyspnea, edema, light headedness, other Gastrointestinal: negative: Nausea, Vomiting, Abdominal Pain, Diarrhea, Constipation, Melena, Hematochezia, Other Genitourinary: negative: Dysuria, Frequency, Incontinence, Hematuria, Retention , Other Musculoskeletal: negative: Neck Pain, Shoulder Pain, Arm Pain, Back Pain, Hand Pain, Leg Pain, Foot Pain, Other Skin: negative: Rash, Lesions, [place], Bruising, Other - Medications/Allergies Allergies/Adverse Reactions: Allergies Allergy/AdvReac Type Severity Reaction Status Date / Time iodine Allergy Verified 10/17/17 23:12 Medications: Current Medications Acetaminophen (Tylenol) 650 mg PO Q4H PRN PRN Reason: Headache/Fever or Mild Pain Hydrocodone Bitart/Acetaminophen ([place] 5/325) 1 tab PO Q4H PRN PRN Reason: Moderate Pain (4-6) Last Admin: 10/25/17 00:21 Dose: 1 tab Al Hydroxide/Mg Hydroxide (Maalox) 15 ml PO Q4H PRN PRN Reason: Heartburn or Indigestion Albuterol/Ipratropium (Duoneb) 3 ml NEB [id number] [facility] Last Admin: 10/25/17 10:23 Dose: 3 ml Amoxicillin/Clavulanate Potassium (Augmentin) 875 mg PO Q12HR [facility] Last Admin: 10/25/17 09:45 Dose: 875 mg Artificial Tears (Tears Naturale) 0 drop EA EYE PRN PRN PRN Reason: Dry Eyes Atorvastatin Calcium (Lipitor) 20 mg PO DAILY [facility] Last Admin: 10/25/17 09:47 Dose: 20 mg Bisacodyl (Dulcolax) 10 mg [place] DAILYPRN PRN PRN Reason: Constipation Buspirone HCl (Buspar) 10 mg PO BID [facility] Last Admin: 10/25/17 09:46 Dose: 10 mg Dextrose/Water (Dextrose 50%) 25 gm SLOW IVP PRN PRN PRN Reason: Hypoglycemia Last Admin: 10/20/17 06:23 Dose: 12.5 gm Digoxin (Lanoxin) 0.125 mg PO QAM [facility] Digoxin (Lanoxin) 0.125 mg PO 1000 [facility] Stop: 10/25/17 12:00 Last Admin: 10/25/17 09:46 Dose: 0.125 mg Glucagon (Glucagon) 1 mg IM PRN PRN PRN Reason: Hypoglycemia Guaifenesin (Robitussin Sf) 200 mg PO Q4H PRN PRN Reason: Cough Last Admin: 10/24/17 04:04 Dose: 200 mg Hydralazine HCl (Apresoline) 10 mg SLOW IVP Q4H PRN PRN Reason: Systolic BP > 180 Dextrose/Water (D5w) 1,000 mls @ 0 mls/hr IV .Q0M PRN; As Directed PRN Reason: Hypoglycemia Insulin Human Lispro (Humalog) 0 units SC .MODERATE SLIDING SC PRN PRN Reason: Moderate Correctional Scale Insulin Human Lispro (Humalog) 0 units [place] .BEDTIME SLIDING SC PRN PRN Reason: Bedtime Correctional Scale Levothyroxine Sodium (Synthroid) 112 mcg PO 0600 [facility] Last Admin: 10/25/17 05:53 Dose: 112 mcg Loperamide HCl (Imodium) 2 mg PO PRN PRN PRN Reason: Diarrhea/Loose Stools Loratadine (Claritin) 10 mg PO DAILYPRN PRN PRN Reason: Sinus Symptoms Magnesium Hydroxide (Milk Of Magnesium) 30 ml PO DAILYPRN PRN PRN Reason: Constipation Mineral Oil/White Petrolatum (Eucerin Cream) 0 gm TOP BIDPRN PRN PRN Reason: Dry Skin Ondansetron HCl (Zofran Odt) 4 mg PO Q6H PRN PRN Reason: Nausea/Vomiting Last Admin: 10/23/17 10:45 Dose: 4 mg Ondansetron HCl (Zofran) 4 mg IVP Q6H PRN PRN Reason: Nausea/Vomiting Last Admin: 10/20/17 09:26 Dose: 4 mg Pantoprazole Sodium (Protonix) 40 mg IVP Q12HR [facility] Last Admin: 10/25/17 09:47 Dose: 40 mg Phenol (Chloraseptic [place] 180 Ml Bot) 0 ml PO PRN PRN PRN Reason: Sore Throat Last Admin: 10/24/17 04:06 Dose: 1 spr Ropinirole HCl (Requip) 3 mg PO HS [facility] Last Admin: 10/24/17 20:25 Dose: 3 mg Senna (Senokot) 2 tab PO HSPRN PRN PRN Reason: Constipation Sodium Chloride ([place] Nasal [place] 0.65%) 0 ml EA NARE QIDPRN PRN PRN Reason: Nasal Congestion Venlafaxine HCl (Effexor) 150 mg PO BID [facility] Last Admin: 10/25/17 09:46 Dose: 150 mg
--- NOTE | 2017-10-25 18:58 | PRG ---
DATE OF SERVICE: 10/25/2017. SUBJECTIVE: Ms. Miller states she is doing well. OBJECTIVE: VITAL SIGNS: She is afebrile, heart rate is 96, respiratory rate is 20, oximetry is 92, blood pressu re 127/54. LUNGS: Clear. HEART: Regular rhythm. ABDOMEN: Soft. We discussed her BiPAP. This is being prescribed for sleep apnea. We cannot get her BiPAP. We may be able to treat her with CPAP if they have any units where she might go. [facility] require the patient to bring their own CPAP. She will need a sleep study in the future, although it is highly likely she has severe sleep apnea. She looks good at this point in time. She can go home for rehabilitation, although I am not sure wha t degree of function we can get her to, since she according to family only would walk from bed to the bedside commode on a daily basis. She is pretty much in bed all the time. She is stable for transfer in my opinion.
[2017-10-25] MEDS: rOPINIRole HCl 1 MG TAB PO SCH (19:38)
[2017-10-26] MEDS: Levothyroxine Sodium 112 MCG TAB PO SCH (04:56)
[2017-10-26] MEDS: HYDROcodone/Acetaminophen 5/325 mg Tablet PO PRN ×3 (04:56→18:46)
[2017-10-26] MEDS: busPIRone HCl 10 MG TAB PO SCH ×2 (08:53→20:10)
[2017-10-26] MEDS: Amoxicillin/Potassium Clav 875 MG TAB PO SCH ×2 (08:53→20:10)
[2017-10-26] MEDS: Atorvastatin Calcium 20 MG TAB PO SCH (08:54)
[2017-10-26] MEDS: Digoxin 0.125 MG TAB PO SCH (08:54)
--- NOTE | 2017-10-26 10:21 | PDOC.PN ---
- Subjective Encounter Start Date: 10/26/17 Encounter Start Time: 07:15 Patient seen and examined. No new complaints. No overnight events - Objective Resuscitation Status: Resuscitation Status DNR:Do Not Resuscitate MAR Reviewed: Yes Vital Signs & Weight: Vital Signs (12 hours) Temp Pulse Resp BP Pulse Ox 10/26/17 08:54 92 10/26/17 08:00 97.1 F L 99 20 94 L 10/26/17 07:56 97.1 F L 99 20 136/76 93 L 10/26/17 07:27 99 10/26/17 07:25 86 17 99 10/26/17 04:35 98.8 F 89 22 H 134/56 L 99 10/26/17 00:00 98.4 F 96 24 H 125/63 94 L Weight Admit Weight 361 lb 5.402 oz Weight 383 lb 7 oz Most Recent Monitor Data Heart Rate from ECG 100 NIBP 70/54 NIBP BP-Mean 58 Respiration from ECG 25 SpO2 95 I&O: 10/25/17 10/26/17 10/27/17 06:59 06:59 06:59 Intake Total 1470 840 Output Total 1025 1200 Balance 445 -360 Result Diagrams: 10/21/17 04:20 10/25/17 04:25 Additional Labs: Accuchecks 10/26/17 10/25/17 10/25/17 05:40 20:30 16:15 POC Glucose 113 H 132 H 100 10/25/17 10:35 POC Glucose 118 H EKG Reviewed by me: Yes (nsr) Phys Exam - Physical Examination Constitutional: NAD HEENT: PERRLA, moist MMs, sclera anicteric Neck: no JVD, supple Respiratory: no wheezing, no rales, no rhonchi Cardiovascular: RRR, no significant murmur, no rub Gastrointestinal: soft, non-tender, no distention, positive bowel sounds Musculoskeletal: no edema, pulses present Neurological: non-focal Lymphatic: no nodes Psychiatric: normal affect Skin: no rash, normal turgor Dx/Plan (1) Acute metabolic encephalopathy Code(s): G93.41 - METABOLIC ENCEPHALOPATHY Status: Resolved (2) Acute on chronic diastolic (congestive) heart failure Code(s): I50.33 - ACUTE ON CHRONIC DIASTOLIC (CONGESTIVE) HEART FAILURE Status : Resolved (3) Acute on chronic kidney failure Code(s): N17.9 - ACUTE KIDNEY FAILURE, UNSPECIFIED; N18.9 - CHRONIC KIDNEY DISEASE, UNSPECIFIED Status: Resolved Comment: improving (4) Acute respiratory failure with hypoxia Code(s): J96.01 - ACUTE RESPIRATORY FAILURE WITH HYPOXIA Status: Resolved Comment: extubated (5) Demand ischemia of myocardium Code(s): I24.8 - OTHER FORMS OF ACUTE ISCHEMIC HEART DISEASE Status: Acute (6) Anxiety and depression Code(s): F41.8 - OTHER SPECIFIED ANXIETY DISORDERS Status: Chronic (7) Chronic anticoagulation Code(s): Z79.01 - SENIOR [place]IVING (CURRENT) USE OF ANTICOAGULANTS Status: Chronic Comment: currently off due to GI bleed (8) Diabetes type 2, controlled Code(s): E11.9 - TYPE 2 DIABETES MELLITUS WITHOUT COMPLICATIONS Status: Chronic (9) GERD (gastroesophageal reflux disease) Code(s): K21.9 - GASTRO-ESOPHAGEAL REFLUX DISEASE WITHOUT ESOPHAGITIS Status: Chronic (10) Morbid obesity with BMI of 50.0-59.9, adult Code(s): E66.01 - MORBID (SEVERE) OBESITY DUE TO EXCESS CALORIES; Z68.43 - BODY MASS INDEX (BMI) 50-59.9 , ADULT Status: Chronic (11) Paroxysmal atrial fibrillation Code(s): I48.0 - PAROXYSMAL ATRIAL FIBRILLATION Status: Chronic (12) Severe tricuspid regurgitation Code(s): I07.1 - RHEUMATIC TRICUSPID INSUFFICIENCY Status: Chronic (13) CVA (cerebral vascular accident) Code(s): I63.9 - CEREBRAL INFARCTION, UNSPECIFIED Status: Suspected (14) GI bleed Code(s): K92.2 - GASTROINTESTINAL HEMORRHAGE, UNSPECIFIED Status: Resolved (15) Hyperkalemia Code(s): E87.5 - HYPERKALEMIA Status: Resolved (16) Hypotension Status: Resolved - Plan cont 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 * ok to transfer to medical Review of Systems - Review of Systems ENT: negative: Ear Pain, Ear Discharge, Nose Pain, Nose Discharge, Nose Congestion, Mouth Pain, Mouth Swelling, Throat Pain, Throat Swelling, Other Respiratory: negative: Cough, Dry, Shortness of Breath, Hemoptysis, SOB with Excertion, Pleuritic Pain, Sputum, Wheezing Cardiovascular: negative: chest pain, palpitations, orthopnea, paroxysmal nocturnal dyspnea, edema, light headedness, other Gastrointestinal: negative: Nausea, Vomiting, Abdominal Pain, Diarrhea, Constipation, Melena, Hematochezia, Other Genitourinary: negative: Dysuria, Frequency, Incontinence, Hematuria, Retention , Other Musculoskeletal: negative: Neck Pain, Shoulder Pain, Arm Pain, Back Pain, Hand Pain, Leg Pain, Foot Pain, Other - Medications/Allergies Allergies/Adverse Reactions: Allergies Allergy/AdvReac Type Severity Reaction Status Date / Time iodine Allergy Verified 10/17/17 23:12 Medications: Current Medications Acetaminophen (Tylenol) 650 mg PO Q4H PRN PRN Reason: Headache/Fever or Mild Pain Hydrocodone Bitart/Acetaminophen ([place] 5/325) 1 tab PO Q4H PRN PRN Reason: Moderate Pain (4-6) Last Admin: 10/26/17 04:56 Dose: 1 tab Al Hydroxide/Mg Hydroxide (Maalox) 15 ml PO Q4H PRN PRN Reason: Heartburn or Indigestion Albuterol/Ipratropium (Duoneb) 3 ml NEB TID-RT [facility] Last Admin: 10/26/17 07:25 Dose: 3 ml Amoxicillin/Clavulanate Potassium (Augmentin) 875 mg PO Q12HR [facility] Last Admin: 10/26/17 08:53 Dose: 875 mg Artificial Tears (Tears Naturale) 0 drop EA EYE PRN PRN PRN Reason: Dry Eyes Atorvastatin Calcium (Lipitor) 20 mg PO DAILY [facility] Last Admin: 10/26/17 08:54 Dose: 20 mg Bisacodyl (Dulcolax) 10 mg [place] DAILYPRN PRN PRN Reason: Constipation Buspirone HCl (Buspar) 10 mg PO BID [facility] Last Admin: 10/26/17 08:53 Dose: 10 mg Dextrose/Water (Dextrose 50%) 25 gm SLOW IVP PRN PRN PRN Reason: Hypoglycemia Last Admin: 10/20/17 06:23 Dose: 12.5 gm Digoxin (Lanoxin) 0.125 mg PO QAM [facility] Last Admin: 10/26/17 08:54 Dose: 0.125 mg Glucagon (Glucagon) 1 mg IM PRN PRN PRN Reason: Hypoglycemia Guaifenesin (Robitussin Sf) 200 mg PO Q4H PRN PRN Reason: Cough Last Admin: 10/24/17 04:04 Dose: 200 mg Hydralazine HCl (Apresoline) 10 mg SLOW IVP Q4H PRN PRN Reason: Systolic BP > 180 Dextrose/Water (D5w) 1,000 mls @ 0 mls/hr IV .Q0M PRN; As Directed PRN Reason: Hypoglycemia Insulin Human Lispro (Humalog) 0 units SC .MODERATE SLIDING SC PRN PRN Reason: Moderate Correctional Scale Insulin Human Lispro (Humalog) 0 units SC .BEDTIME SLIDING SC PRN PRN Reason: Bedtime Correctional Scale Levothyroxine Sodium (Synthroid) 112 mcg PO 0600 [facility] Last Admin: 10/26/17 04:56 Dose: 112 mcg Loperamide HCl (Imodium) 2 mg PO PRN PRN PRN Reason: Diarrhea/Loose Stools Loratadine (Claritin) 10 mg PO DAILYPRN PRN PRN Reason: Sinus Symptoms Magnesium Hydroxide (Milk Of Magnesium) 30 ml PO DAILYPRN PRN PRN Reason: Constipation Mineral Oil/White Petrolatum (Eucerin Cream) 0 gm TOP BIDPRN PRN PRN Reason: Dry Skin Nystatin (Mycostatin Powder) 0 gm TOP BID [facility] Ondansetron HCl (Zofran Odt) 4 mg PO Q6H PRN PRN Reason: Nausea/Vomiting Last Admin: 10/23/17 10:45 Dose: 4 mg Ondansetron HCl (Zofran) 4 mg IVP Q6H PRN PRN Reason: Nausea/Vomiting Last Admin: 10/20/17 09:26 Dose: 4 mg Pantoprazole Sodium (Protonix) 40 mg PO BID [facility] Last Admin: 10/26/17 08:54 Dose: 40 mg Phenol (Chloraseptic [place] 180 Ml Bot) 0 ml PO PRN PRN PRN Reason: Sore Throat Last Admin: 10/24/17 04:06 Dose: 1 spr Ropinirole HCl (Requip) 3 mg PO [facility] Last Admin: 10/25/17 19:38 Dose: 3 mg Senna (Senokot) 2 tab PO HSPRN PRN PRN Reason: Constipation Sodium Chloride ([place] Nasal [place] 0.65%) 0 ml EA NARE QIDPRN PRN PRN Reason: Nasal Congestion Venlafaxine HCl (Effexor) 150 mg PO BID [facility] Last Admin: 10/26/17 08:50 Dose: 150 mg
[2017-10-26] MEDS: Nystatin Powder 15 GM BOT TOP SCH ×2 (10:36→20:12)
[2017-10-26] MEDS: rOPINIRole HCl 1 MG TAB PO SCH (20:11)
[2017-10-26] MEDS: Diabetic Tussin 200 MG/10 ML UDCUP PO PRN (20:13)
[2017-10-27] MEDS: HYDROcodone/Acetaminophen 5/325 mg Tablet PO PRN ×4 (01:11→16:16)
--- NOTE | 2017-10-27 02:34 | PRG ---
DATE OF SERVICE: 10/26/2017 SUBJECTIVE: No acute care issues for Ms. Miller. She is doing well with her diet except her brocco li at lunch. She has no new complaints. She is smiling, is always when I entered the room. She is very polite and has no complaints. OBJECTIVE: VITAL SIGNS: Blood pressure this morning was 136/76, heart rate was in the 90s, respiratory rate is 20, oximetry is 93%. She is still sleeping with positive pressure support for a sleep apnea. LUNGS: Clear. HEART: Regular rhythm. ABDOMEN: Soft. IMPRESSION: 1. Status post altered mental status on presentation leading to intubation ?cerebrovascular accident versus untreated sleep apnea combined with a transient ischemic event. 2. Obesity with extreme deconditioning. 3. Gastrointestinal bleeding, anticoagulation is on hold until she gets far enough out from her acut e event that anticoagulation can be restarted. 4. DO NOT RESUSCITATE status. 5. Reflux disease. 6. Chronic atrial fibrillation. 7. Diabetes. 8. Hypertension. 9. History of spinal stenosis. 10. Peripheral vascular disease. 11. History of deep venous thrombosis. 12. History of breast cancer. She is stable to move out of the intermediate care unit in my opinion. She should continue with her nighttime BiPAP/CPAP, placement is the next issues whether she goes home or goes to [facility].
[2017-10-27] MEDS: Levothyroxine Sodium 112 MCG TAB PO SCH (05:24)
[2017-10-27] MEDS: Amoxicillin/Potassium Clav 875 MG TAB PO SCH ×2 (08:33→20:49)
[2017-10-27] MEDS: busPIRone HCl 10 MG TAB PO SCH ×2 (08:33→20:50)
[2017-10-27] MEDS: Atorvastatin Calcium 20 MG TAB PO SCH (08:33)
[2017-10-27] MEDS: Digoxin 0.125 MG TAB PO SCH (08:33)
[2017-10-27] MEDS: Nystatin Powder 15 GM BOT TOP SCH (08:34)
--- NOTE | 2017-10-27 09:38 | PDOC.PN ---
- Subjective Encounter Start Date: 10/27/17 Encounter Start Time: 09:00 Patient seen and examined. No new complaints. No overnight events - Objective Resuscitation Status: Resuscitation Status DNR:Do Not Resuscitate MAR Reviewed: Yes Vital Signs & Weight: Vital Signs (12 hours) Temp Pulse Resp BP Pulse Ox 10/27/17 08:33 87 10/27/17 08:13 97.7 F 87 16 153/95 H 100 10/27/17 07:58 97 10/27/17 07:53 91 20 97 10/27/17 05:00 98.7 F 89 18 139/73 96 10/27/17 01:26 90 10/26/17 23:00 98.7 F 92 20 142/75 H 97 Weight Admit Weight 361 lb 5.402 oz Weight 389 lb 5.805 oz Most Recent Monitor Data Heart Rate from ECG 100 NIBP 70/54 NIBP BP-Mean 58 Respiration from ECG 25 SpO2 95 I&O: 10/26/17 10/27/17 10/28/17 06:59 06:59 06:59 Intake Total 840 1150 Output Total 1200 1900 Balance -360 -750 Result Diagrams: 10/21/17 04:20 10/25/17 04:25 Additional Labs: Accuchecks 10/27/17 10/26/17 10/26/17 05:25 20:10 16:23 POC Glucose 95 97 89 10/26/17 10:40 POC Glucose 178 H Phys Exam - Physical Examination Constitutional: NAD HEENT: PERRLA, moist MMs, sclera anicteric Neck: no JVD, supple Respiratory: no wheezing, no rales, no rhonchi Cardiovascular: RRR, no significant murmur, no rub Gastrointestinal: soft, non-tender, no distention, positive bowel sounds Musculoskeletal: pulses present, edema present Neurological: non-focal, normal sensation Lymphatic: no nodes Psychiatric: normal affect Skin: no rash, normal turgor Dx/Plan (1) Acute metabolic encephalopathy Code(s): G93.41 - METABOLIC ENCEPHALOPATHY Status: Resolved (2) Acute on chronic diastolic (congestive) heart failure Code(s): I50.33 - ACUTE ON CHRONIC DIASTOLIC (CONGESTIVE) HEART FAILURE Status : Resolved (3) Acute on chronic kidney failure Code(s): N17.9 - ACUTE KIDNEY FAILURE, UNSPECIFIED; N18.9 - CHRONIC KIDNEY DISEASE, UNSPECIFIED Status: Resolved Comment: improving (4) Acute respiratory failure with hypoxia Code(s): J96.01 - ACUTE RESPIRATORY FAILURE WITH HYPOXIA Status: Resolved Comment: extubated (5) Demand ischemia of myocardium Code(s): I24.8 - OTHER FORMS OF ACUTE ISCHEMIC HEART DISEASE Status: Acute (6) Anxiety and depression Code(s): F41.8 - OTHER SPECIFIED ANXIETY DISORDERS Status: Chronic (7) Chronic anticoagulation Code(s): Z79.01 - [place] (CURRENT) USE OF ANTICOAGULANTS Status: Chronic Comment: currently off due to GI bleed (8) Diabetes type 2, controlled Code(s): E11.9 - TYPE 2 DIABETES MELLITUS WITHOUT COMPLICATIONS Status: Chronic (9) GERD (gastroesophageal reflux disease) Code(s): K21.9 - GASTRO-ESOPHAGEAL REFLUX DISEASE WITHOUT ESOPHAGITIS Status: Chronic (10) Morbid obesity with BMI of 50.0-59.9, adult Code(s): E66.01 - MORBID (SEVERE) OBESITY DUE TO EXCESS CALORIES; Z68.43 - BODY MASS INDEX (BMI) 50-59.9 , ADULT Status: Chronic (11) Paroxysmal atrial fibrillation Code(s): I48.0 - PAROXYSMAL ATRIAL FIBRILLATION Status: Chronic (12) Severe tricuspid regurgitation Code(s): I07.1 - RHEUMATIC TRICUSPID INSUFFICIENCY Status: Chronic (13) CVA (cerebral vascular accident) Code(s): I63.9 - CEREBRAL INFARCTION, UNSPECIFIED Status: Suspected (14) GI bleed Code(s): K92.2 - GASTROINTESTINAL HEMORRHAGE, UNSPECIFIED Status: Resolved (15) Hyperkalemia Code(s): E87.5 - HYPERKALEMIA Status: Resolved (16) Hypotension Status: Resolved - Plan cont 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 Review of Systems - Review of Systems ENT: negative: Ear Pain, Ear Discharge, Nose Pain, Nose Discharge, Nose Congestion, Mouth Pain, Mouth Swelling, Throat Pain, Throat Swelling, Other Respiratory: negative: Cough, Dry, Shortness of Breath, Hemoptysis, SOB with Excertion, Pleuritic Pain, Sputum, Wheezing Cardiovascular: negative: chest pain, palpitations, orthopnea, paroxysmal nocturnal dyspnea, edema, light headedness, other Gastrointestinal: negative: Nausea, Vomiting, Abdominal Pain, Diarrhea, Constipation, Melena, Hematochezia, Other Genitourinary: negative: Dysuria, Frequency, Incontinence, Hematuria, Retention , Other Musculoskeletal: negative: Neck Pain, Shoulder Pain, Arm Pain, Back Pain, Hand Pain, Leg Pain, Foot Pain, Other Skin: negative: Rash, Lesions, Enrike, Bruising, Other - Medications/Allergies Allergies/Adverse Reactions: Allergies Allergy/AdvReac Type Severity Reaction Status Date / Time iodine Allergy Verified 10/17/17 23:12 Medications: Current Medications Acetaminophen (Tylenol) 650 mg PO Q4H PRN PRN Reason: Headache/Fever or Mild Pain Hydrocodone Bitart/Acetaminophen ([place] 5/325) 1 tab PO Q4H PRN PRN Reason: Moderate Pain (4-6) Last Admin: 10/27/17 09:24 Dose: 1 tab Al Hydroxide/Mg Hydroxide (Maalox) 15 ml PO Q4H PRN PRN Reason: Heartburn or Indigestion Albuterol/Ipratropium (Duoneb) 3 ml NEB TID-RT [facility] Last Admin: 10/27/17 07:53 Dose: 3 ml Amoxicillin/Clavulanate Potassium (Augmentin) 875 mg PO Q12HR [facility] Last Admin: 10/27/17 08:33 Dose: 875 mg Artificial Tears (Tears Naturale) 0 drop EA EYE PRN PRN PRN Reason: Dry Eyes Atorvastatin Calcium (Lipitor) 20 mg PO DAILY [facility] Last Admin: 10/27/17 08:33 Dose: 20 mg Bisacodyl (Dulcolax) 10 mg [place] DAILYPRN PRN PRN Reason: Constipation Buspirone HCl (Buspar) 10 mg PO BID [facility] Last Admin: 10/27/17 08:33 Dose: 10 mg Dextrose/Water (Dextrose 50%) 25 gm SLOW IVP PRN PRN PRN Reason: Hypoglycemia Last Admin: 10/20/17 06:23 Dose: 12.5 gm Digoxin (Lanoxin) 0.125 mg PO QAM [facility] Last Admin: 10/27/17 08:33 Dose: 0.125 mg Glucagon (Glucagon) 1 mg IM PRN PRN PRN Reason: Hypoglycemia Guaifenesin (Robitussin Sf) 200 mg PO Q4H PRN PRN Reason: Cough Last Admin: 10/26/17 20:13 Dose: 200 mg Hydralazine HCl (Apresoline) 10 mg SLOW IVP Q4H PRN PRN Reason: Systolic BP > 180 Dextrose/Water (D5w) 1,000 mls @ 0 mls/hr IV .Q0M PRN; As Directed PRN Reason: Hypoglycemia Insulin Human Lispro (Humalog) 0 units SC .MODERATE SLIDING SC PRN PRN Reason: Moderate Correctional Scale Insulin Human Lispro (Humalog) 0 units SC .BEDTIME SLIDING SC PRN PRN Reason: Bedtime Correctional Scale Levothyroxine Sodium (Synthroid) 112 mcg PO 0600 [facility] Last Admin: 10/27/17 05:24 Dose: 112 mcg Loperamide HCl (Imodium) 2 mg PO PRN PRN PRN Reason: Diarrhea/Loose Stools Loratadine (Claritin) 10 mg PO DAILYPRN PRN PRN Reason: Sinus Symptoms Magnesium Hydroxide (Milk Of Magnesium) 30 ml PO DAILYPRN PRN PRN Reason: Constipation Mineral Oil/White Petrolatum (Eucerin Cream) 0 gm TOP BIDPRN PRN PRN Reason: Dry Skin Nystatin (Mycostatin Powder) 0 gm TOP BID [facility] Last Admin: 10/27/17 08:34 Dose: 1 applic Ondansetron HCl (Zofran Odt) 4 mg PO Q6H PRN PRN Reason: Nausea/Vomiting Last Admin: 10/23/17 10:45 Dose: 4 mg Ondansetron HCl (Zofran) 4 mg IVP Q6H PRN PRN Reason: Nausea/Vomiting Last Admin: 10/20/17 09:26 Dose: 4 mg Pantoprazole Sodium (Protonix) 40 mg PO BID [facility] Last Admin: 10/27/17 08:33 Dose: 40 mg Phenol (Chloraseptic [place] 180 Ml Bot) 0 ml PO PRN PRN PRN Reason: Sore Throat Last Admin: 10/24/17 04:06 Dose: 1 spr Ropinirole HCl (Requip) 3 mg PO HS [facility] Last Admin: 10/26/17 20:11 Dose: 3 mg Senna (Senokot) 2 tab PO HSPRN PRN PRN Reason: Constipation Sodium Chloride ([place] Nasal [place] 0.65%) 0 ml EA NARE QIDPRN PRN PRN Reason: Nasal Congestion Venlafaxine HCl (Effexor) 150 mg PO BID [facility] Last Admin: 10/27/17 08:34 Dose: 150 mg
--- NOTE | 2017-10-27 17:06 | DIS ---
DATE OF ADMISSION: 10/18/2017 DATE OF DISCHARGE: 10/27/2017 PRIMARY CARE PHYSICIAN: [facility] call admission. DISCHARGE DISPOSITION: [facility] home in [place]. PRIMARY DISCHARGE DIAGNOSES: Hypotension, resolved; hyperkalemia, improved; gastrointestinal bleed, resolved; acute respiratory failure and hypoxia resolved; acute on chronic kidney failure, resolved; acute on chronic diastolic heart failure, improved; acute metabolic encephalopathy, resolved; gastric ulcer; demand ischemia of myocardium. SECONDARY DISCHARGE DIAGNOSES: Anxiety, depression, chronic anticoagulation, diabetes type 2, gastro esophageal reflux disease, morbid obesity, paroxysmal atrial fibrillation, severe tricuspid regurgita tion, physical deconditioning, and obstructive sleep apnea. PRIMARY PROCEDURE/OPERATION: Dr. Ramirez did upper endoscopy x2, endotracheal intubation and mechanica l ventilator support, central line placement. RADIOLOGICAL INVESTIGATION: CT brain x2, chest x-ray x3, carotid ultrasound. SIGNIFICANT LABORATORY DATA: WBC 7.8, hemoglobin 11.7, platelets 110, INR 1.7. Sodium 142, potassiu m 4.0, BUN 8, creatinine 0.57, calcium 8.4, H. pylori antibody negative. DISCHARGE MEDICATIONS: Xanax 0.5 mg p.o. at bedtime p.r.n., atenolol 50 mg p.o. daily, Lipitor 20 mg p.o. daily, buspirone 10 mg p.o. b.i.d., vitamin B12 1000 mcg p.o. daily, digoxin 0.125 mg p.o. minnie y, Cardizem 60 mg p.o. t.i.d., ferrous sulfate 325 mg p.o. daily, folic acid 1 mg p.o. daily, Lasix 4 0 mg p.o. b.i.d., Synthroid 112 mcg p.o. daily, metformin 500 mg p.o. daily, Protonix 40 mg p.o. b.i. d., AZO 2 capsule p.o. daily, ropinirole 3 mg p.o. at bedtime, Effexor 150 mg p.o. b.i.d. CONTRAINDICATIONS: None. CODE STATUS: DNR. INPATIENT CONSULTANTS: Dr. Harmon was following for respiratory failure. Dr. Orosco was following fo r GI bleed. Dr. Cadena was following for kidney failure. TEST RESULTS PENDING ON DISCHARGE: None. ALLERGIES: IODINE. DISCHARGE PLAN: Post hospital, patient is discharged to Assisted home at [place]. Subsequen tly, patient will follow up with primary care physician. HOSPITAL COURSE: A 67-year-old female with above-mentioned medical problem who was admitted by Dr. Yovani calvillo. Please see his H&P for further details. She was brought to emergency room with unresponsivenes s. She required intubation. On admission she was encephalopathic. She had acute hypoxic respirator y failure that was suspicious for stroke and that is why Neurology was consulted. She was hypotensiv e, but we found that she had GI bleed that is why she was hypotensive. There was question of congest gema heart failure, but it was related with diastolic heart failure. She was on chronic anticoagulati on for atrial fibrillation with Eliquis that was discontinued because of GI bleed and we did not rest art that medication because of risk of bleeding from gastric ulcer. She had acute metabolic encephal opathy that was improved with time. She had acute kidney failure that was also improved with IV flui d. We avoided nephrotoxin. Her abnormal electrolytes were corrected and replaced while in hospital. Notably she had hyperkalemia that was improved. She had demand ischemia of myocardium that was als o improved. We did echocardiography, carotid Doppler as a part of stroke workup. Neurology was tryi ng to do MRI brain, but we were not able to do MRI because of her size. Subsequently, this patient was transferred to [facility]. She had 2 time upper endoscopy. She required no blood transfusion during this admission. This patient is significant physically and that is why she needs placement and that is why with help of supervisor case loading, we arranged rehab at [place]. This rashawn ent was not approved for swing bed at [facility]. Initially, this patient was in ICU and then IMCU and then transferred to medical floor and today she has approval for long term home. All consultants cleared her for discharge. The patient is medically stable for discharge. She will continue above-mentioned medications. She needs PT, OT and she will need outpatient sleep study estee use we are suspecting sleep apnea on her as well. Total time spent to arrange discharge of this patient is more than 30 minutes.
[2017-10-27] MEDS: rOPINIRole HCl 1 MG TAB PO SCH (20:49)
[2017-10-27 21:24] VITALS: BP 138/89; TEMP 98.6
== END 2017-10-27 23:35 | DRG 208 ==
LOC: ERS 21:22 → CCU 10-18 02:25 → IMCU/EMU 10-22 18:51 → T4-B 10-26 23:27
PROVIDERS: ADMIT Family Medicine; ATTEND Family Medicine
PROC: 5A1945Z Respiratory Ventilation, 24-96 Consecutive Hours (ICD-10-PCS; 2017-10-18)
PROC: 0DJ08ZZ Inspection of Upper Intestinal Tract, Via Natural or Artificial Opening Endoscopic (ICD-10-PCS; 2017-10-18)
PROC: 0BH17EZ Insertion of Endotracheal Airway into Trachea, Via Natural or Artificial Opening (ICD-10-PCS; 2017-10-18)
PROC: 02HV33Z Insertion of Infusion Device into Superior Vena Cava, Percutaneous Approach (ICD-10-PCS; 2017-10-18)
PROC: 0W3P8ZZ Control Bleeding in Gastrointestinal Tract, Via Natural or Artificial Opening Endoscopic (ICD-10-PCS; principal; 2017-10-20)
DX: J96.01 Acute respiratory failure with hypoxia (principal); I63.9 Cerebral infarction, unspecified; G93.41 Metabolic encephalopathy; I50.33 Acute on chronic diastolic (congestive) heart failure; N17.9 Acute kidney failure, unspecified; K25.0 Acute gastric ulcer with hemorrhage; I95.9 Hypotension, unspecified; E87.0 Hyperosmolality and hypernatremia; E11.22 Type 2 diabetes mellitus with diabetic chronic kidney disease; E66.2 Morbid (severe) obesity with alveolar hypoventilation; D62 Acute posthemorrhagic anemia; I24.8 Other forms of acute ischemic heart disease; N39.0 Urinary tract infection, site not specified; I13.0 Hypertensive heart and chronic kidney disease with heart failure and stage 1 through stage 4 chronic kidney disease, or unspecified chronic kidney disease; Z68.43 Body mass index [BMI] 50.0-59.9, adult; J96.02 Acute respiratory failure with hypercapnia; E87.5 Hyperkalemia; Z79.01 Long term (current) use of anticoagulants; Z86.718 Personal history of other venous thrombosis and embolism; Z87.891 Personal history of nicotine dependence; K21.9 Gastro-esophageal reflux disease without esophagitis; Z98.84 Bariatric surgery status; Z66 Do not resuscitate; I73.9 Peripheral vascular disease, unspecified; Z85.3 Personal history of malignant neoplasm of breast; N18.9 Chronic kidney disease, unspecified; G47.33 Obstructive sleep apnea (adult) (pediatric); F41.9 Anxiety disorder, unspecified; F32.9 Major depressive disorder, single episode, unspecified; I07.1 Rheumatic tricuspid insufficiency; I48.0 Paroxysmal atrial fibrillation; Z78.1 Physical restraint status
CPT/HCPCS: 31500; 36415; 36416; 36556; 70450; 71045; 80048; 80053; 82805; 83690; 83880; 84484; 85007; 85025; 85027; 85049; 85300; 85362; 85379; 85384; 85610; 85730; 86677; 86850; 86900; 86901; 93005; 93306; 93880; 94002; 94003; 94150; 94640; 94660; 94760; 96365; 96366; 96375; 99292; A4216; C9113; G8978-GP-CM; G8979-GP-CJ; G8987-GO-CM; G8988-GO-CK; J0692; J1160; J1956; J2060; J2405; J2704; J3370; J7050; J7620; P9047; S0028